=== PATIENT | male | born 1990 | race Caucasian/White ===

== ENCOUNTER 2023-01-03 05:34 | Emergency (ER) | payer MEDICAID, SELFPAY ==
[2023-01-03 05:37] VITALS: BP 146/100; PULSE 99; RESP 18; TEMP 37.4; O2SAT 95; BMI 51.1
[2023-01-03 05:46] LABS: Glucometer 134 mg/dL (74-106)
--- NOTE | 2023-01-03 05:51 | XR_ITS ---
The [address] [address] Patient Name: JACQUELINE GUY MRN: [id number] date: 1990 Sex: M Assigned Patient Location: ER Current Patient Location: ER Accession/Order Number: [id number] Exam Date: 01/03/2023 06:00 Report Date: 01/03/2023 07:01 At the request of: CYNTHIA PINEDA Procedure: XR ankle RT min 3V PROCEDURE: XR foot RT min 3V, XR ankle RT min 3V HISTORY: pain ; right foot and ankle pain; no known injury COMPARISON: None. FINDINGS: BONES:Erosive degenerative changes involving the articular surface and margins of the head of the first metatarsal, and complete loss of the joint space. Mild joint space narrowing throughout the ankle and foot. No fracture or dislocation. SOFT TISSUES:No visible soft tissue swelling. EFFUSION:None visible. OTHER: Negative. XR/XR ankle RT min 3V IMPRESSION: 1. 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 2. Mild degenerative joint disease throughout the foot and ankle; advanced for patient's age. Electronically authenticated by: MARTHA SMITH Date: 01/03/2023 07:01
--- NOTE | 2023-01-03 05:51 | XR_ITS ---
The [address] [address] Patient Name: JACQUELINE GUY MRN: [id number] date: 1990 Sex: M Assigned Patient Location: ER Current Patient Location: ED.MAIN Accession/Order Number: [id number] Exam Date: 01/03/2023 06:00 Report Date: 01/03/2023 06:48 At the request of: CYNTHIA PINEDA Procedure: XR wrist RT min 3V PROCEDURE: XR wrist RT min 3V HISTORY: pain ; right hand weakness for one week COMPARISON: None. FINDINGS: BONES:No fracture, acute abnormality, or significant arthropathy. SOFT TISSUES:No visible soft tissue swelling. Small corticated ossification posterior medial to distal ulna favoring heterotopic bone formation from remote injury. EFFUSION:None visible. OTHER: Negative. XR/XR wrist RT min 3V IMPRESSION: 1. No acute bone abnormality or significant degenerative joint disease. 2. No specific findings to contribute patient's symptoms. Electronically authenticated by: MARTHA SMITH Date: 01/03/2023 06:48
--- NOTE | 2023-01-03 05:51 | XR_ITS ---
The [address] [address] Patient Name: JACQUELINE GUY MRN: [id number] date: 1990 Sex: M Assigned Patient Location: ER Current Patient Location: ER Accession/Order Number: [id number] Exam Date: 01/03/2023 06:00 Report Date: 01/03/2023 07:01 At the request of: CYNTHIA PINEDA Procedure: XR foot RT min 3V PROCEDURE: XR foot RT min 3V, XR ankle RT min 3V HISTORY: pain ; right foot and ankle pain; no known injury COMPARISON: None. FINDINGS: BONES:Erosive degenerative changes involving the articular surface and margins of the head of the first metatarsal, and complete loss of the joint space. Mild joint space narrowing throughout the ankle and foot. No fracture or dislocation. SOFT TISSUES:No visible soft tissue swelling. EFFUSION:None visible. OTHER: Negative. XR/XR foot RT min 3V IMPRESSION: 1. 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 2. Mild degenerative joint disease throughout the foot and ankle; advanced for patient's age. Electronically authenticated by: MARTHA SMITH Date: 01/03/2023 07:01
--- NOTE | 2023-01-03 05:57 | ED_ITS ---
HPI - Weakness General Chief complaint: Weakness Stated complaint: WEAKNESS Time Seen by Provider: 01/03/23 05:51 Source: patient Mode of arrival: Wheelchair Limitations: physical limitation History of Present Illness HPI Narrative: The patient is complaining of generalized weakness with right wrist pain and right foot pain that has been going on at least for few weeks he denies any injury and he mentioned that he has been feeling weak and tired and hungry although he did not give any reason why he is hungry and he did request food upon presentation The patient denies any trauma nausea vomiting or any chest pain He did had a injection in his right wrist before for pain and he presented to another facility for back pain before and he was given Toradol for that Related Data Allergies Allergy/AdvReac Type Severity Reaction Status Date / Time No Known Drug Allergies Allergy Verified 01/03/23 05:43 Review of Systems ROS Status of ROS 10 or more systems reviewed and unremarkable except as noted in history and below PFSH PFS Social History Smoking status: Never smoker Exam Narrative Exam Narrative: Nurses notes and vital signs reviewed and patient is not hypoxic. General: Well-appearing and in no apparent distress. Skin: Warm, dry, no pallor noted. No rash. Head: Normocephalic, atraumatic. Neck: Supple, non-tender. Eye: Pupils are equal, round and EOMI. No scleral icterus. Ears, Nose, Mouth, and Throat: TM are clear, no nasal mucosal hypertrophy. Oral mucosa is moist, no posterior oropharynx erythema, uvula is mid-line Cardiovascular: Regular Rate and Rhythm without murmur, gallop or rub. Respiratory: No accessory muscle use or respiratory distress. Lungs are clear to auscultation, no wheezing, rales or rhonchi Chest Wall: no tenderness Back: No midline thoracic or lumbar vertebral tenderness. No CVA tenderness Musculoskeletal: The patient have tenderness upon palpation of the lateral malleolus on the right ankle he did had some bad hygiene and there is tenderness just at the big toe metatarsophalangeal joint of the right foot, there is tenderness upon palpation of the right wrist and there is limitation of movement of extension and flexion due to swelling and pain, no vascular injury detected GI: Abdomen is soft, non-distended. Normal bowel sounds. No masses appreciated. No tenderness to palpation. No rebound, guarding, or rigidity noted. Neurological: A&O x4. No cranial nerve dysfunction observed. No truncal ataxia. Moves all extremities. Sensation intact. Psychiatric: Cooperative and interactive. Normal mood and affect. Constitutional Vital Signs, click to edit/add: Last Vital Signs Temp 99.3 F 01/03/23 05:37 Pulse 99 H 01/03/23 05:37 Resp 18 01/03/23 05:37 BP 146/100 H 01/03/23 05:37 Pulse Ox 95 01/03/23 05:37 O2 Del Method Room Air 01/03/23 05:37 Course Vital Signs Vital signs: Vital Signs Temperature 99.3 F 01/03/23 05:37 Pulse Rate 99 H 01/03/23 05:37 Respiratory Rate 18 01/03/23 05:37 Blood Pressure 146/100 H 01/03/23 05:37 Pulse Oximetry 95 01/03/23 05:37 Oxygen Delivery Method Room Air 01/03/23 05:37 Temperature 99.3 F 01/03/23 05:37 Pulse Rate 99 H 01/03/23 05:37 Respiratory Rate 18 01/03/23 05:37 Blood Pressure 146/100 H 01/03/23 05:37 Pulse Oximetry 95 01/03/23 05:37 Oxygen Delivery Method Room Air 01/03/23 05:37 MDM - Weakness MDM Narrative Medical decision making narrative: The patient presented with chronic issues of few weeks of right breast and right foot pain that has been going on with no trauma he also mentioned that he had injection in his wrist before for similar pain It was noted that the patient presented to us complain generalized weakness and being hungry and requested food upon presentation The patient blood work-up showed no acute significant pathology his x-ray of the right wrist and foot are pending and his care will be transferred to Dr. Hendrix awaiting those results Lab Data Labs: Lab Results 01/03/23 01/03/23 Range/Units 05:41 06:00 WBC 11.4 H (4.0-11.0) 10^3/uL RBC 4.75 (4.70-6.10) 10^6/uL Hgb 13.4 L (14.0-18.0) g/dL Hct 40.9 L (42.0-54.0) % MCV 86.1 (80.0-94.0) fL MCH 28.2 (25.9-34.0) pg MCHC 32.8 (29.9-35.2) g/dL RDW 12.5 (11.0-15.0) % Plt Count 356 (150-450) 10^3/uL MPV 10.2 (9.5-13.5) fL Neut % (Auto) 67.2 (43.0-75.0) % Lymph % (Auto) 20.7 (20.5-60.0) % [place] % (Auto) 9.9 (1.7-12.0) % Eos % (Auto) 0.8 L (0.9-7.0) % Baso % (Auto) 0.5 (0.2-2.0) % Neut # (Auto) 7.7 H (1.4-6.5) 10^3/uL Lymph # (Auto) 2.4 (1.2-3.8) 10^3/uL [place] # (Auto) 1.1 H (0.3-0.8) 10^3/uL Eos # (Auto) 0.1 (0.0-0.7) 10^3/uL Baso # (Auto) 0.1 (0.0-0.1) 10^3/uL Abs Immat Gran (auto) 0.10 H (0.00-0.03) 10^3/uL Imm/Tot Granulo (auto) 0.9 H (0.0-0.5) % Sodium 132 L (136-145) mmol/L Potassium 3.6 (3.5-5.1) mmol/L Chloride 97 L (98-107) mmol/L Carbon Dioxide 24.6 (21.0-32.0) mmol/L Anion Gap 14.0 BUN 10.0 (7.0-18.0) mg/dL Creatinine 1.03 (0.70-1.30) mg/dL Est GFR ( Amer) >60 (>=60) Est GFR (Non-Af Amer) >60 (>=60) BUN/Creatinine Ratio 9.7 Glucose 146 H (74-106) mg/dL Calcium 8.8 (8.5-10.1) mg/dL Total Bilirubin 0.9 (0.2-1.0) mg/dL AST 15 (15-37) U/L ALT 26 (16-63) U/L Alkaline Phosphatase 67 (46-116) U/L Total Protein 8.1 (6.4-8.2) g/dL Albumin 3.4 (3.4-5.0) g/dL Globulin 4.7 g/dL Albumin/Globulin Ratio 0.7 POC Glucose 134 H (74-106) mg/dL Discharge Plan Discharge Patient Disposition: Still a Patient
[2023-01-03 06:21] LABS: Basophils Absolute Auto 0.1 10^3/uL (0.0-0.1); Basophils Percent Auto 0.5 % (0.2-2.0); Eosinophils Absolute Auto 0.1 10^3/uL (0.0-0.7); Eosinophils Percent Auto 0.8 % (0.9-7.0); Hematocrit 40.9 % (42.0-54.0); Hemoglobin 13.4 g/dL (14.0-18.0); Immature Granulocytes Pct Auto 0.9 % (0.0-0.5); Lymphocytes Absolute Auto 2.4 10^3/uL (1.2-3.8); Lymphocytes Percent Auto 20.7 % (20.5-60.0); Mean Corpuscular HGB Conc 32.8 g/dL (29.9-35.2); Mean Corpuscular Hemoglobin 28.2 pg (25.9-34.0); Mean Corpuscular Volume 86.1 fL (80.0-94.0); Mean Platelet Volume 10.2 fL (9.5-13.5); Monocytes Absolute Auto 1.1 10^3/uL (0.3-0.8); Monocytes Percent Auto 9.9 % (1.7-12.0); Neutrophils Absolute Auto 7.7 10^3/uL (1.4-6.5); Neutrophils Percent Auto 67.2 % (43.0-75.0); Platelet Count 356 10^3/uL (150-450); Red Blood Count 4.75 10^6/uL (4.70-6.10); Red Cell Distribution Width 12.5 % (11.0-15.0); White Blood Count 11.4 10^3/uL (4.0-11.0)
[2023-01-03] MEDS: KETOROLAC TROMETHAMINE 60 MG/2 ML VIAL IM (06:26)
[2023-01-03 06:44] LABS: Alanine Aminotransferase 26 U/L (16-63); Albumin Globulin Ratio 0.7; Albumin Level 3.4 g/dL (3.4-5.0); Alkaline Phosphatase 67 U/L (46-116); Aspartate Amino Transferase 15 U/L (15-37); BUN Creatinine Ratio 9.7; Bilirubin Total 0.9 mg/dL (0.2-1.0); Calcium 8.8 mg/dL (8.5-10.1); Carbon Dioxide 24.6 mmol/L (21.0-32.0); Chloride 97 mmol/L (98-107); Estimated GFR (African America >60 (>=60); Estimated GFR (Non-African Ame >60 (>=60); Globulin 4.7 g/dL; Glucose 146 mg/dL (74-106); Potassium 3.6 mmol/L (3.5-5.1); Sodium 132 mmol/L (136-145); Total Protein 8.1 g/dL (6.4-8.2)
[2023-01-03 07:41] VITALS: BP 142/90
[2023-01-03 07:55] LABS: Uric Acid 11.4 mg/dL (3.5-7.2)
== END 2023-01-03 07:53 | disposition home or self-care (01) ==
PROVIDERS: Emergency Medicine; Emergency Provider Emergency Medicine
DX: L03.115 Cellulitis of right lower limb (principal); M19.90 Unspecified osteoarthritis, unspecified site; I10 Essential (primary) hypertension; M25.571 Pain in right ankle and joints of right foot
CPT/HCPCS: 36415; 73110; 73610; 73630; 80053; 84550; 85025; 85610; 96372; 99284

== ENCOUNTER 2023-01-26 14:48 | Emergency (ER) | payer MEDICAID, SELFPAY ==
[2023-01-26 14:55] VITALS: BP 182/100; PULSE 99; RESP 17; TEMP 36.9; O2SAT 97
--- NOTE | 2023-01-26 15:24 | ED.EXTPRO1 ---
Documented by User: ANA PAULA Rojo 01/26/23 15:27 HPI - Extremity Problem General Chief complaint: Extremity Problem, Nontraumatic Stated complaint: RT WRIST PAIN Time Seen by Provider: 01/26/23 15:01 Source: patient Mode of arrival: walk-in Limitations: no limitations History of Present Illness HPI Narrative: patient is a 33-year-old male who presents to the emergency Department for pain in the right wrist. Patient was seen in this emergency department on 01/03/23 for the same. He has been having atraumatic right wrist pain for several months and recently moved from [place]. He had blood work, x-rays and was treated for gouty arthritis and possible cellulitis with prednisone and Keflex. He states that his right wrist pain improved but has gotten worse in the last several days. He denies any new injuries or traumas. He reports pain diffusely over the dorsum of the right wrist. He continues to have elevated blood pressure reading in this emergency department today, he was instructed on his last visit that his blood pressure was elevated and he should establish with a local primary care provider. He states that he has not gotten around to it . Related Data Previous Rx's Medication Instructions Recorded cephalexin 500 mg capsule 500 mg PO Q8H 7 days #21 caps 01/03/23 prednisone 50 mg tablet 50 mg PO DAILY 5 days #5 tabs 01/03/23 ketorolac 10 mg tablet 10 mg PO TID PRN pain #10 tabs 01/26/23 methylprednisolone 4 mg tablets in See Rx Instructions .Route 01/26/23 a dose pack (Medrol (Wero)) .COMPLEX #21 ea Allergies Allergy/AdvReac Type Severity Reaction Status Date / Time No Known Drug Allergies Allergy Verified 01/03/23 05:43 Review of Systems ROS Constitutional Denies: fever or chills Respiratory Denies: shortness of breath or cough Gastrointestinal Denies: nausea or vomiting Musculoskeletal Reports: extremity pain; Denies: back pain or neck pain Integumentary/Breast Denies: rash Endocrine Denies: excessive urination Hematologic/Lymphatic Denies: easy bruising PFSH PFSH Social History Smoking status: Never smoker Exam Narrative Exam Narrative: Gen.: Awake, alert, in no distress Head: Normocephalic, atraumatic ENT: Moist mucous membranes Respiratory: No respiratory distress Extremities: limited flexion and extension at the right wrist with diffuse minimal edema, 2+ right radial pulse. Normal movement of the fingers of the right hand. Diffusely tender to palpation of the right wrist, no erythema or open wounds noted. No tenderness of the proximal forearm or elbow the right upper extremity Psych: Normal mood and affect Neuro: No focal neuro deficit Skin: Warm, dry, intact Constitutional Vital Signs, click to edit/add: Last Vital Signs Temp 98.4 F 01/26/23 14:55 Pulse 97 H 01/26/23 15:42 Resp 18 01/26/23 15:42 BP 140/90 01/26/23 15:42 Pulse Ox 99 01/26/23 15:42 O2 Del Method Room Air 01/26/23 14:55 Course Vital Signs Vital signs: Vital Signs Temperature 98.4 F 01/26/23 14:55 Pulse Rate 99 H 01/26/23 14:55 Respiratory Rate 17 01/26/23 14:55 Blood Pressure 182/100 H 01/26/23 14:55 Pulse Oximetry 97 01/26/23 14:55 Oxygen Delivery Method Room Air 01/26/23 14:55 Temperature 98.4 F 01/26/23 14:55 Pulse Rate 97 H 01/26/23 15:42 Respiratory Rate 18 01/26/23 15:42 Blood Pressure 140/90 01/26/23 15:42 Pulse Oximetry 99 01/26/23 15:42 Oxygen Delivery Method Room Air 01/26/23 14:55 MDM - Extremity (Nontraumatic) MDM Narrative Medical decision making narrative: patient with no injuries, recently treated for suspected inflammation in the right wrist. He was made aware of the limitations of emergency room evaluation as he has already had labs and x-rays. He will be placed on a Medrol Dosepak and Toradol for pain. He is referred to local primary care, he was made aware that he needs to establish with a primary care provider for further evaluation and treatment of his elevated blood pressure readings and chronic right wrist pain. He was instructed that he can go directly to [facility] office across the street and ask for help with establishing care as a new patient so that he can be scheduled. return to the Emergency Room if symptoms change or worsen Discharge Plan Discharge Chief Complaint: Extremity Problem, Nontraumatic Clinical Impression: Acute pain of right wrist, High blood pressure Patient Disposition: Home, Self-Care Time of Disposition Decision: 15:18 Condition: Good Mode of Transportation: Private Vehicle Prescriptions / Home Meds: New ketorolac 10 mg tablet 10 mg PO TID PRN (Reason: pain) Qty: 10 0RF methylprednisolone [Medrol (Wero)] 4 mg tablets,dose pack See Rx Instructions .ROUTE .COMPLEX Qty: 21 0RF Rx Instructions: Taper as directed No Action prednisone 50 mg tablet 50 mg PO DAILY 5 Days Qty: 5 0RF cephalexin 500 mg capsule 500 mg PO Q8H 7 Days Qty: 21 0RF Instructions: Arthralgia (ED) Stand Alone Forms: Portal Instructions Referrals: Physician,Non-Staff, MD [Primary Care Provider] - 1 week Discharge Date/Time: 01/26/23 15:43 Documented by User: Leigh Hendrix MD 01/27/23 07:58 HPI - Extremity Problem General Chief complaint: Extremity Problem, Nontraumatic Stated complaint: RT WRIST PAIN Time Seen by Provider: 01/26/23 15:01 Related Data Previous Rx's Medication Instructions Recorded cephalexin 500 mg capsule 500 mg PO Q8H 7 days #21 caps 01/03/23 prednisone 50 mg tablet 50 mg PO DAILY 5 days #5 tabs 01/03/23 ketorolac 10 mg tablet 10 mg PO TID PRN pain #10 tabs 01/26/23 methylprednisolone 4 mg tablets in See Rx Instructions .Route 01/26/23 a dose pack (Medrol (Wero)) .COMPLEX #21 ea Allergies Allergy/AdvReac Type Severity Reaction Status Date / Time No Known Drug Allergies Allergy Verified 01/03/23 05:43 PFSH PFSH Social History Smoking status: Never smoker Exam Constitutional Vital Signs, click to edit/add: Last Vital Signs Temp 98.4 F 01/26/23 14:55 Pulse 97 H 01/26/23 15:42 Resp 18 01/26/23 15:42 BP 140/90 01/26/23 15:42 Pulse Ox 99 01/26/23 15:42 O2 Del Method Room Air 01/26/23 14:55 Course Vital Signs Vital signs: Vital Signs Temperature 98.4 F 01/26/23 14:55 Pulse Rate 99 H 01/26/23 14:55 Respiratory Rate 17 01/26/23 14:55 Blood Pressure 182/100 H 01/26/23 14:55 Pulse Oximetry 97 01/26/23 14:55 Oxygen Delivery Method Room Air 01/26/23 14:55 Temperature 98.4 F 01/26/23 14:55 Pulse Rate 97 H 01/26/23 15:42 Respiratory Rate 18 01/26/23 15:42 Blood Pressure 140/90 01/26/23 15:42 Pulse Oximetry 99 01/26/23 15:42 Oxygen Delivery Method Room Air 01/26/23 14:55 MDM - Extremity (Nontraumatic) MDM Narrative Medical decision making narrative: patient with no injuries, recently treated for suspected inflammation in the right wrist. He was made aware of the limitations of emergency room evaluation as he has already had labs and x-rays. He will be placed on a Medrol Dosepak and Toradol for pain. He is referred to local primary care, he was made aware that he needs to establish with a primary care provider for further evaluation and treatment of his elevated blood pressure readings and chronic right wrist pain. He was instructed that he can go directly to [facility] office across the street and ask for help with establishing care as a new patient so that he can be scheduled. return to the Emergency Room if symptoms change or worsen Attending physician attestation I have seen and evaluated this patient. I have reviewed the mid-level provider?s documentation medical decision making and treatment plan. I agree with the mid-level provider?s assessment, and plan. Discharge Plan Discharge Chief Complaint: Extremity Problem, Nontraumatic Clinical Impression: Acute pain of right wrist, High blood pressure Patient Disposition: Home, Self-Care Time of Disposition Decision: 15:18 Condition: Good Mode of Transportation: Private Vehicle Prescriptions / Home Meds: New ketorolac 10 mg tablet 10 mg PO TID PRN (Reason: pain) Qty: 10 0RF methylprednisolone [Medrol (Wero)] 4 mg tablets,dose pack See Rx Instructions .ROUTE .COMPLEX Qty: 21 0RF Rx Instructions: Taper as directed No Action prednisone 50 mg tablet 50 mg PO DAILY 5 Days Qty: 5 0RF cephalexin 500 mg capsule 500 mg PO Q8H 7 Days Qty: 21 0RF Instructions: Arthralgia (ED) Stand Alone Forms: Portal Instructions Referrals: Physician,Non-Staff, MD [Primary Care Provider] - 1 week Discharge Date/Time: 01/26/23 15:43
[2023-01-26 15:42] VITALS: BP 140/90; PULSE 97; RESP 18; O2SAT 99
== END 2023-01-26 15:43 | disposition home or self-care (01) ==
PROVIDERS: Emergency Provider Emergency Medicine
DX: M25.531 Pain in right wrist (principal); I10 Essential (primary) hypertension
CPT/HCPCS: 99283

== ENCOUNTER 2023-02-01 14:06 | Outpatient (OUT) | payer MEDICAID, SELFPAY ==
[2023-02-02 05:07] LABS: HCV Ab Non Reactive (Non Reactive)
== END 2023-02-01 14:07 | disposition home or self-care (01) ==
LOC: LAB 14:06
PROVIDERS: PCP Nurse Practitioner Primary Care; Visit Provider Nurse Practitioner Primary Care
DX: E11.59 Type 2 diabetes mellitus with other circulatory complications (principal)
CPT/HCPCS: 36415; 86803

== ENCOUNTER 2023-02-13 17:30 | Observation (INO) | payer MEDICAID, SELFPAY ==
[2023-02-13 17:38] VITALS: BP 158/102; PULSE 72; RESP 22; TEMP 36.5; O2SAT 99; BMI 50.3
--- NOTE | 2023-02-13 17:48 | ED_ITS ---
HPI - Abdominal Pain General Chief Complaint: Abdominal Pain Stated Complaint: ABD PAIN Time Seen by Provider: 02/13/23 17:44 Source: patient Mode of arrival: walk-in Limitations: no limitations History of Present Illness HPI narrative: 33-year-old male presents for left lower quadrant abdominal pain. It started about an hour and a half ago. No injury fever or vomiting. No diarrhea or constipation. He points to his left lower quadrant indicate area of pain and he doesn't have pain elsewhere. It is severe and continuous. Related Data Previous Rx's Medication Instructions Recorded cephalexin 500 mg capsule 500 mg PO Q8H 7 days #21 caps 01/03/23 prednisone 50 mg tablet 50 mg PO DAILY 5 days #5 tabs 01/03/23 ketorolac 10 mg tablet 10 mg PO TID PRN pain #10 tabs 01/26/23 methylprednisolone 4 mg tablets in See Rx Instructions .Route 01/26/23 a dose pack (Medrol (Wero)) .COMPLEX #21 ea Allergies Allergy/AdvReac Type Severity Reaction Status Date / Time No Known Drug Allergies Allergy Verified 01/03/23 05:43 Review of Systems ROS Narrative A ten point review of systems is negative except as noted above. PFSH PFSH Social History Smoking status: Never smoker Exam Narrative Exam Narrative: Nurses note and vital signs reviewed and patient is not hypoxic. General: The patient appears uncomfortable Skin: Warm, dry, no pallor noted. There is no rash noted. Head: Normocephalic, atraumatic Eye: Normal conjunctiva, no drainage Ears, Nose, Mouth, and Throat: oral mucosa is moist. Nares patent. Cardiovascular: Regular Rate and Rhythm Respiratory: Patient is in no distress, no accessory muscle use, lungs are clear to auscultation, no wheezing, rales or rhonchi Back: non-tender GI: obese, mild tenderness in the left lower quadrant without distention or mass Musculoskeletal: The patient has no evidence of calf tenderness, no pitting edema, symmetrical pulses noted bilaterally Neurological: A&O, normal speech Psychiatric: Cooperative Constitutional Vital Signs, click to edit/add: Last Vital Signs Temp 97.7 F 02/13/23 17:38 Pulse 72 02/13/23 17:38 Resp 22 02/13/23 17:38 BP 158/102 H 02/13/23 17:38 Pulse Ox 99 02/13/23 17:38 O2 Del Method Room Air 02/13/23 17:38 Course Vital Signs Vital signs: Vital Signs Temperature 97.7 F 02/13/23 17:38 Pulse Rate 72 02/13/23 17:38 Respiratory Rate 22 02/13/23 17:38 Blood Pressure 158/102 H 02/13/23 17:38 Pulse Oximetry 99 02/13/23 17:38 Oxygen Delivery Method Room Air 02/13/23 17:38 Temperature 97.7 F 02/13/23 17:38 Pulse Rate 72 02/13/23 17:38 Respiratory Rate 22 02/13/23 17:38 Blood Pressure 158/102 H 02/13/23 17:38 Pulse Oximetry 99 02/13/23 17:38 Oxygen Delivery Method Room Air 02/13/23 17:38 MDM - Abdominal Pain MDM Narrative Medical decision making narrative: blood work is nonspecific. I'm suspicious of a kidney stone. CAT scan is ordered and the patient is signed out to Dr. Shin. Differential Diagnosis Differential diagnosis: Likely abdominal pain, calculus of kidney and constipation Lab Data Attestation: I reviewed the patient's lab results. Labs: Lab Results 02/13/23 02/13/23 Range/Units 17:50 18:25 WBC 10.5 (4.0-11.0) 10^3/uL RBC 5.16 (4.70-6.10) 10^6/uL Hgb 14.6 (14.0-18.0) g/dL Hct 44.7 (42.0-54.0) % MCV 86.6 (80.0-94.0) fL MCH 28.3 (25.9-34.0) pg MCHC 32.7 (29.9-35.2) g/dL RDW 12.9 (11.0-15.0) % Plt Count 309 (150-450) 10^3/uL MPV 10.3 (9.5-13.5) fL Neut % (Auto) 54.5 (43.0-75.0) % Lymph % (Auto) 32.9 (20.5-60.0) % [place] % (Auto) 10.0 (1.7-12.0) % Eos % (Auto) 1.0 (0.9-7.0) % Baso % (Auto) 0.7 (0.2-2.0) % Neut # (Auto) 5.8 (1.4-6.5) 10^3/uL Lymph # (Auto) 3.5 (1.2-3.8) 10^3/uL [place] # (Auto) 1.1 H (0.3-0.8) 10^3/uL Eos # (Auto) 0.1 (0.0-0.7) 10^3/uL Baso # (Auto) 0.1 (0.0-0.1) 10^3/uL Abs Immat Gran (auto) 0.09 H (0.00-0.03) 10^3/uL Imm/Tot Granulo (auto) 0.9 H (0.0-0.5) % Sodium 134 L (136-145) mmol/L Potassium 4.2 (3.5-5.1) mmol/L Chloride 100 (98-107) mmol/L Carbon Dioxide 22.6 (21.0-32.0) mmol/L Anion Gap 15.6 BUN 12.0 (7.0-18.0) mg/dL Creatinine 1.03 (0.70-1.30) mg/dL Est GFR ( Amer) >60 (>=60) Est GFR (Non-Af Amer) >60 (>=60) BUN/Creatinine Ratio 11.7 Glucose 140 H (74-106) mg/dL Calcium 9.5 (8.5-10.1) mg/dL Urine Color Lt. yellow (YELLOW) Urine Clarity Slightly cloudy A (CLEAR) Urine pH 6.0 (5.0-9.0) Ur Specific [place] 1.015 (1.005-1.025) Urine Protein Negative (NEG/TRACE) mg/dL Urine Glucose (UA) Negative (NEGATIVE) mg/dL Urine Ketones Negative (NEGATIVE) mg/dL Urine Occult Blood Small A (NEGATIVE) Urine Nitrite Negative (NEGATIVE) Urine Bilirubin Negative (NEGATIVE) Urine Urobilinogen 1.0 (0.2-1.0) EU/dL Ur Leukocyte Esterase Moderate A (NEGATIVE) Discharge Plan Discharge Chief Complaint: Abdominal Pain Clinical Impression: Abdominal pain Patient Disposition: Still a Patient Prescriptions / Home Meds: No Action prednisone 50 mg tablet 50 mg PO DAILY 5 Days Qty: 5 0RF cephalexin 500 mg capsule 500 mg PO Q8H 7 Days Qty: 21 0RF ketorolac 10 mg tablet 10 mg PO TID PRN (Reason: pain) Qty: 10 0RF methylprednisolone [Medrol (Wero)] 4 mg tablets,dose pack See Rx Instructions .ROUTE .COMPLEX Qty: 21 0RF Rx Instructions: Taper as directed Referrals: CHELSEY PLATT APRN [Primary Care Provider] - 1 week
[2023-02-13 17:56] LABS: Basophils Absolute Auto 0.1 10^3/uL (0.0-0.1); Basophils Percent Auto 0.7 % (0.2-2.0); Eosinophils Absolute Auto 0.1 10^3/uL (0.0-0.7); Hematocrit 44.7 % (42.0-54.0); Hemoglobin 14.6 g/dL (14.0-18.0); Immature Granulocytes Abs Auto 0.09 10^3/uL (0.00-0.03); Immature Granulocytes Pct Auto 0.9 % (0.0-0.5); Lymphocytes Absolute Auto 3.5 10^3/uL (1.2-3.8); Lymphocytes Percent Auto 32.9 % (20.5-60.0); Mean Corpuscular HGB Conc 32.7 g/dL (29.9-35.2); Mean Corpuscular Hemoglobin 28.3 pg (25.9-34.0); Mean Corpuscular Volume 86.6 fL (80.0-94.0); Mean Platelet Volume 10.3 fL (9.5-13.5); Monocytes Absolute Auto 1.1 10^3/uL (0.3-0.8); Neutrophils Absolute Auto 5.8 10^3/uL (1.4-6.5); Neutrophils Percent Auto 54.5 % (43.0-75.0); Platelet Count 309 10^3/uL (150-450); Red Blood Count 5.16 10^6/uL (4.70-6.10); Red Cell Distribution Width 12.9 % (11.0-15.0); White Blood Count 10.5 10^3/uL (4.0-11.0)
[2023-02-13 18:04] LABS: Anion Gap 15.6; BUN Creatinine Ratio 11.7; Calcium 9.5 mg/dL (8.5-10.1); Carbon Dioxide 22.6 mmol/L (21.0-32.0); Chloride 100 mmol/L (98-107); Estimated GFR (African America >60 (>=60); Estimated GFR (Non-African Ame >60 (>=60); Glucose 140 mg/dL (74-106); Potassium 4.2 mmol/L (3.5-5.1); Sodium 134 mmol/L (136-145)
[2023-02-13 18:36] LABS: Bilirubin Urine NEGATIVE (NEGATIVE); Blood Urine SMALL (NEGATIVE); Color Urine LT. YELLOW (YELLOW); Glucose Urine UA NEGATIVE (NEGATIVE); Ketones Urine NEGATIVE (NEGATIVE); Leukocyte Esterase Urine MODERATE (NEGATIVE); Nitrite Urine NEGATIVE (NEGATIVE); Protein Urine NEGATIVE (NEG/TRACE); Specific Gravity Urine 1.015 (1.005-1.025)
[2023-02-13 18:38] LABS: Clarity Urine SLIGHTLY CLOUDY (CLEAR)
[2023-02-13 18:41] LABS: RBC Urine 0-2 #/HPF (0-2); WBC Urine 75-100 #/HPF (NONE SEEN)
[2023-02-13 18:42] LABS: Bacteria Urine TRACE #/HPF (NONE SEEN); Mucus Urine NONE SEEN (NONE SEEN)
--- NOTE | 2023-02-13 18:42 | CT_ITS ---
The [address] [address] Patient Name: JACQUELINE GUY MRN: [id number] date: 1990 Sex: M Assigned Patient Location: ER Current Patient Location: ER Accession/Order Number: [id number] Exam Date: 02/13/2023 18:49 Report Date: 02/13/2023 20:04 At the request of: NAHID LIM Procedure: CT abdomen pelvis wo con EXAMINATION: CT abdomen pelvis wo con REASON FOR EXAM: Pain, rule out kidney stone. Left flank pain. TECHNIQUE: Dose reduction techniques were achieved by using automated exposure control and/or adjustment of mA and/or kV according to patient size and/or use of iterative reconstruction technique. Lung bases: Minor atelectasis right lung base. No pleural effusion. Abdominal findings: There is mild to moderate left-sided hydronephrosis and hydroureter which is secondary to a stone in the pelvic segment of the left ureter. This stone measures 1.1 x 0.6 cm and resides at a location 2.6 cm above the left UVJ. No other nephrolithiasis. There is fatty infiltration of the liver and multiple cholesterol gallstones. No cholecystitis. No biliary dilatation. No pancreatitis or pancreatic ductal dilatation. Adrenal glands are normal. No dilatation of the stomach, duodenum, small bowel, or colon. The appendix is normal. No abnormally dilated small or large bowel. No free air. No ascites. Normal caliber abdominal aorta. Pelvic findings: No pelvic free fluid or abscess. No distention of the urinary bladder. No bladder calculus. CT/CT abdomen pelvis wo con IMPRESSION: 1. Obstructing stone in the pelvic segment of the left ureter. This stone measures up to 1.1 cm in maximal diameter. Mild to moderate left-sided hydronephrosis. 2. Incidental findings include fatty infiltration of the liver and cholelithiasis. Electronically authenticated by: LARISA PARIKH Date: 02/13/2023 20:04
[2023-02-13 18:43] LABS: Cast Seen? NONE SEEN #/LPF (NONE SEEN); Crystals Seen? None Seen #/HPF (None Seen); Squamous Epithelial Cell Urine NONE SEEN #/LPF (NONE/RARE); Urine Culture Indicated YES
[2023-02-13] MEDS: ONDANSETRON PF 4 MG/2 ML VIAL IV (18:49)
[2023-02-13] MEDS: CIPROFLOXACIN IN 5 % DEXTROSE 400 MG/200 ML PIGGYBACK 200 MG IV (19:14)
[2023-02-13] MEDS: KETOROLAC TROMETHAMINE 30 MG/ML VIAL IVP (19:30)
[2023-02-13] MEDS: TAMSULOSIN HCL 0.4 MG CAPSULE PO (20:45)
[2023-02-13 20:47] VITALS: BP 177/103; PULSE 71; RESP 16; O2SAT 100
[2023-02-13 23:09] VITALS: BP 180/102; PULSE 107; RESP 22; TEMP 37.7; O2SAT 98; BMI 49.3
[2023-02-13] MEDS: DEXTROSE 5%-0.9% NACL 1,000 ML 1,000 ML 125 ML IV (23:57)
[2023-02-14] VITALS (18 sets, daily range): BP systolic 108–180; BP diastolic 71–102; PULSE 70–89; RESP 8–89; TEMP 36.2–37.7; O2SAT 95–100
[2023-02-14 00:05] LABS: Glucometer 163 mg/dL (74-106)
[2023-02-14] MEDS: ACETAMINOPHEN 325 MG TABLET 650 MG PO (00:07)
[2023-02-14] MEDS: HYDRALAZINE HCL 20 MG/ML VIAL 10 MG IVP (00:08)
--- NOTE | 2023-02-14 02:18 | P.PN_ITS ---
Progress Note: Subjective Subjective Interval history: Patient is a 33-year-old male with history of hypertension and morbid obesity presenting with with complaint of left lower quadrant abdominal pain of sudden onset around 4 PM yesterday afternoon after he had gotten into his car to head to work. Patient states that while he was at work, the LLQ pain became more severe in intensity therefore he called his boss and proceeded to drive to the hospital, approximately 4 miles away from his job. He denies any fevers at home, denies any nausea or vomiting and denies any dysuria, hematuria, no urinary frequency. Patient does note that he vomited approximately 3 times in the ED which did resolve after receiving Zofran. Patient does report that he had a history of kidney stones in the past for which he was hospitalized for when he lived in [place] and subsequently followed up with urologist in the office but according to patient, he could not afford the financial cost to proceed with stone removal at that time.. He reports that his pain had improved at that time and he had not had any recurrent issues up until yesterday. Upon arrival to the ED, vital signs noted for BP 158/102 and SBP has been as high as 180s since arrival to the floor, pulse 72, RR 22, afebrile with normal O2 sat RA. Labs significant for sodium 134, glucose 140 otherwise rest of labs within normal limits including normal renal function with creatinine of 1.03 and normal LFTs as well is normal WBC. UA was positive with moderate leuk esterase, small occult blood with WBC count of 75-[address] abdomen and pelvis noted for obstructive left ureteral stone at 1.1 cm with associated mild to moderate left hydronephrosis. Also incidental finding for fatty liver and cholelithiasis. Patient was treated in the ED with Toradol, Flomax, Zofran, and a dose of Cipro 400 mg. He is being admitted to the hospitalist service for further management. Exam Constitutional Vital Signs, click to edit/add: Last Vital Signs Temp 98.3 F 02/14/23 01:09 Pulse 107 H 02/13/23 23:09 Resp 22 02/13/23 23:09 BP 180/102 H 02/14/23 00:08 Pulse Ox 98 02/13/23 23:09 O2 Del Method Room Air 02/13/23 23:09 Common normals: no apparent distress and alert General appearance: cooperative and comfortable Orientation/consciousness: Yes awake, Yes oriented to person, Yes oriented to place and Yes oriented to time HENMT Common normals: normocephalic and head/scalp atraumatic Head and scalp: normal to inspection Face and sinus: normal facial exam Eye Common normals: PERRL and EOMs intact bilaterally Respiratory Common normals: normal respiratory effort and no use of accessory muscles Effort & inspection: able to speak in complete sentences Auscultation: clear to auscultation bilaterally and diminished lung sounds Cardio Common normals: regular rate, regular rhythm, S1 normal heart sound and S2 normal heart sound GI Inspection: other (morbidly obese abd) Auscultation: hypoactive bowel sounds Palpation: soft and other (TTP LLQ) Common normals: no CVA tenderness Extremity Common normals: normal to inspection and full ROM General: normal exam except as noted Neuro Common normals: oriented x3, CN's II-XII intact bilaterally and moves all extremities Psych Common normals: mental status grossly normal and thought process normal Speech: normal speech Attention/concentration: attention grossly intact Memory/cognition: memory grossly intact Insight: insight good Judgement: judgment good Progress Note: Objective Labs Labs: Short CBC 02/13/23 Range/Units 17:50 WBC 10.5 (4.0-11.0) 10^3/uL Hgb 14.6 (14.0-18.0) g/dL Hct 44.7 (42.0-54.0) % Plt Count 309 (150-450) 10^3/uL BMP 02/13/23 17:50 Sodium 134 L Potassium 4.2 Chloride 100 Carbon Dioxide 22.6 BUN 12.0 Creatinine 1.03 Glucose 140 H Calcium 9.5 Urine 02/13/23 Range/Units 18:25 Urine Color Lt. yellow (YELLOW) Urine Clarity Slightly cloudy A (CLEAR) Urine pH 6.0 (5.0-9.0) Ur Specific [place] 1.015 (1.005-1.025) Urine Protein Negative (NEG/TRACE) mg/dL Urine Glucose (UA) Negative (NEGATIVE) mg/dL Imaging CT scan - abdomen: Radiologist's impression: CT abdomen and pelvis with obstructive left ureteral stone 1.1 cm and mild to moderate left hydronephrosis, fatty liver with cholelithiasis Progress Note: A&P Assessment and Plan (1) Hydronephrosis with obstructing calculus: Assessment and Plan: N.p.o., IV fluids. Urology consulted with plans to go to the OR this morning. As needed Toradol, Zofran for pain. Continue Flomax. Empiric Rocephin ordered (2) UTI (urinary tract infection): Assessment and Plan: Follow-up urine culture. Empiric Rocephin ordered. IV fluids (3) Hypertension: Assessment and Plan: Uncontrolled. Takes losartan at home. IV hydralazine ordered as needed well n.p.o. Closely monitor with IV fluids (4) Hyperglycemia: Assessment and Plan: Patient denies history of diabetes. For now we will monitor with repeat labs (5) Hyponatremia: Assessment and Plan: Mild. IV fluids ordered, repeat labs in a.m. (6) Fatty liver: Assessment and Plan: Noted in the setting of history of morbid obesity. LFTs currently normal. Outpatient surveillance with PCP (7) Morbid obesity due to excess calories: Assessment and Plan: Diet and lifestyle modification. Follow-up with PCP for long-term management Telemedicine Attestation Telemedicine Attestation I conducted this encounter from [MD] via secure live, [id number] video conference with the patient, located at [facility] with [ANDREI Aguilar]. Prior to the interview, the risks and benefits of telemedicine were discussed with the patient and verbal consent was obtained.
[2023-02-14 04:55] LABS: Basophils Absolute Auto 0.1 10^3/uL (0.0-0.1); Basophils Percent Auto 0.2 % (0.2-2.0); Hematocrit 41.4 % (42.0-54.0); Hemoglobin 13.6 g/dL (14.0-18.0); Immature Granulocytes Abs Auto 0.16 10^3/uL (0.00-0.03); Immature Granulocytes Pct Auto 0.7 % (0.0-0.5); Lymphocytes Absolute Auto 1.2 10^3/uL (1.2-3.8); Lymphocytes Percent Auto 5.3 % (20.5-60.0); Mean Corpuscular HGB Conc 32.9 g/dL (29.9-35.2); Mean Corpuscular Hemoglobin 28.6 pg (25.9-34.0); Mean Corpuscular Volume 87.2 fL (80.0-94.0); Mean Platelet Volume 10.4 fL (9.5-13.5); Monocytes Absolute Auto 1.7 10^3/uL (0.3-0.8); Monocytes Percent Auto 7.4 % (1.7-12.0); Neutrophils Absolute Auto 19.2 10^3/uL (1.4-6.5); Neutrophils Percent Auto 86.4 % (43.0-75.0); Platelet Count 284 10^3/uL (150-450); Red Blood Count 4.75 10^6/uL (4.70-6.10); White Blood Count 22.2 10^3/uL (4.0-11.0)
[2023-02-14 05:15] LABS: Alanine Aminotransferase 24 U/L (16-63); Albumin Globulin Ratio 0.8; Albumin Level 3.2 g/dL (3.4-5.0); Alkaline Phosphatase 73 U/L (46-116); Anion Gap 12.8; Aspartate Amino Transferase 7 U/L (15-37); Bilirubin Total 0.6 mg/dL (0.2-1.0); Calcium 9.1 mg/dL (8.5-10.1); Carbon Dioxide 25.1 mmol/L (21.0-32.0); Chloride 102 mmol/L (98-107); Estimated GFR (African America 56 (>=60); Estimated GFR (Non-African Ame 46 (>=60); Globulin 3.9 g/dL; Glucose 219 mg/dL (74-106); Potassium 3.9 mmol/L (3.5-5.1); Sodium 136 mmol/L (136-145); Total Protein 7.1 g/dL (6.4-8.2)
[2023-02-14] MEDS: CIPROFLOXACIN IN 5 % DEXTROSE 400 MG/200 ML PIGGYBACK 125 MG IV (06:37)
--- NOTE | 2023-02-14 07:54 | PC.NURSE ---
Right hand has some weakness and the flexion and extension is limited
[2023-02-14] MEDS: KETOROLAC TROMETHAMINE 30 MG/ML VIAL IVP ×3 (08:16→19:12)
[2023-02-14] MEDS: TAMSULOSIN HCL 0.4 MG CAPSULE PO (08:17)
--- NOTE | 2023-02-14 08:20 | P.HP_ITS ---
H&P: HPI History of Present Illness Chief complaint: ABD PAIN Narrative: patient is a 33-year-old male with past medical history of hypertension, [id number] type 2 diabetes, and kidney stones. He presented to the Emergency Room with a sudden onset of left lower quadrant abdominal pain. He also had a few episodes of vomiting. He notes history of left stone in his ureter which she was hospitalized in [place] but could not afford outpatient follow-up and stone removal. Upon arrival to the emergency department he denied any fevers chills. Patient was found to have an elevated white blood cell count and a slightly elevated creatinine of 1.7. CT of abdomen and pelvis was positive for an obstructive left ureteral stone 1.1 cm with mild to moderate left hydronephrosis. Urology was counseled and plans for surgical intervention this evening. Also on CT scan was incidental finding of the of fatty liver and cholelithiasis. Patient was treated with Toradol, Flomax, Zofran and a dose of Cipro he was admitted for further management and plan of care.patient denies ever having surgery before, no family history of any issues with anesthesia. Review of Systems ROS Narrative ROS: a complete review of systems were reviewed with patient and are positive as below or listed in History of Chief Complaint. General: no fever, chills, night sweats Head: no headache, trauma, visual changes, nausea or vomiting Skin: no reported rashes, itching or sores Eyes: no blurriness of vision Ears: no reported hearing loss, vertigo, earache, or tinnitus Throat: no sore throat, hoarseness, swelling of neck, or tongue pain Heart: no chest pain Lungs: no shortness of breath or cough GI: no diarrhea or vomiting/nausea Urinary: no urinary urgency, frequency or pain Neuro: no numbness or tingling HEM: no bleeding issues or bruising ENDO: no thyroid problems Psych: no anxiety or depression PFSH PFSH Social History Smoking status: Never smoker Meds Home Medications and Allergies Home Medications Medication Instructions Recorded Confirmed Type losartan 100 mg tablet 100 mg PO QDAY 02/13/23 02/13/23 History Allergies Allergy/AdvReac Type Severity Reaction Status Date / Time No Known Drug Allergies Allergy Verified 02/14/23 01:00 Exam Narrative Exam Narrative: General: Patient is alert, and oriented to person, place and time with normal affect, proper hygiene, mobid obesity Skin: no visible rashes, or ulcers Head: atraumatic, acephalic Eyes: PERRLA, no nystagmus present, conjunctiva clear, no scleral icterus Ears: normal Tympanic Membrane, normal gross auditory acuity Heart: Normal rate and rhythm, no murmurs/rubs/gallops Lungs: no audible wheezes, crackles and normal breath sounds all lung matos Abdomen: Normal audible bowel sounds, no distension, No palpable masses, no organomegaly, no rebound/guarding/ or rigidity Musculoskeletal: muscle atrophy noted, ROM is limited due to being in hospital bed, no swelling bilateral lower extremities Vascular: Normal carotid, radial, femoral, posterior tibial, and dorsalis pedis pulses Lymph: no supraclavicular, axillary, or anterior/posterior cervical adenopathy Neuro: CN II-X grossly intact, normal sensation upper and lower extremities Constitutional Vital Signs, click to edit/add: Last Vital Signs Temp 98.1 F 02/14/23 07:30 Pulse 74 02/14/23 07:30 Resp 18 02/14/23 07:30 BP 118/85 02/14/23 07:30 Pulse Ox 98 02/14/23 07:30 O2 Del Method Room Air 02/14/23 07:30 Results Labs Labs: Short CBC 02/13/23 02/14/23 Range/Units 17:50 04:43 WBC 10.5 22.2 H (4.0-11.0) 10^3/uL Hgb 14.6 13.6 L (14.0-18.0) g/dL Hct 44.7 41.4 L (42.0-54.0) % Plt Count 309 284 (150-450) 10^3/uL BMP 02/13/23 02/14/23 17:50 04:43 Sodium 134 L 136 Potassium 4.2 3.9 Chloride 100 102 Carbon Dioxide 22.6 25.1 BUN 12.0 17.0 Creatinine 1.03 1.70 H Glucose 140 H 219 H Calcium 9.5 9.1 Liver Function 02/14/23 Range/Units 04:43 Total Bilirubin 0.6 (0.2-1.0) mg/dL AST 7 L (15-37) U/L ALT 24 (16-63) U/L Alkaline Phosphatase 73 (46-116) U/L Albumin 3.2 L (3.4-5.0) g/dL Urine 02/13/23 Range/Units 18:25 Urine Color Lt. yellow (YELLOW) Urine Clarity Slightly cloudy A (CLEAR) Urine pH 6.0 (5.0-9.0) Ur Specific [place] 1.015 (1.005-1.025) Urine Protein Negative (NEG/TRACE) mg/dL Urine Glucose (UA) Negative (NEGATIVE) mg/dL Assessment and Plan Assessment and Plan (1) Hydronephrosis with obstructing calculus: Assessment and Plan: N.p.o., IV fluids. Urology consulted with plans to go to the OR this evening. As needed Toradol, Zofran for pain. Continue Flomax. Empiric Rocephin ordered (2) UTI (urinary tract infection): Assessment and Plan: follow up culture, continue rocephin (3) Hypertension: Assessment and Plan: Iv hydralaxine as needed, will restart losartan after surgery (4) Hyperglycemia: Assessment and Plan: history of taking metformin, has not in many years, will monitor, check ha1c, SSI if needed (5) Hyponatremia: Assessment and Plan: resolved, sodium was 136 (6) Fatty liver: Assessment and Plan: Noted in the setting of history of morbid obesity. LFTs currently normal. Outpatient surveillance with PCP (7) Morbid obesity due to excess calories: Assessment and Plan: Diet and lifestyle modification. Follow-up with PCP for long-term management Plan full code surgical intervention today, hopeful discharge after procedure with urology follow up
[2023-02-14] MEDS: DEXTROSE 5%-0.9% NACL 1,000 ML 1,000 ML 125 ML IV (08:24)
[2023-02-14] MEDS: CEFTRIAXONE 1,000 MG in 0.9 % SODIUM CHLORIDE 50 ML 100 MG IV (09:25)
--- NOTE | 2023-02-14 10:53 | CM.NOTE ---
Rounds made with Dr. Jones, awaiting urology for treatment plan for pt.
[2023-02-14 13:07] LABS: Estimated Average Glucose 143 mg/dL; Glycohemoglobin A1C 6.6 % (4.5-6.2)
--- NOTE | 2023-02-14 14:11 | PC.NURSE ---
not due at this time
[2023-02-14] MEDS: LACTATED RINGER'S SOLUTION 1,000 ML 125 ML IV (14:47)
[2023-02-14] MEDS: LACTATED RINGER'S SOLUTION 1,000 ML 50 ML IV (16:02)
[2023-02-14] MEDS: CEFAZOLIN SODIUM 3,000 MG in 0.9 % SODIUM CHLORIDE 100 ML 200 MG IV (17:04)
--- NOTE | 2023-02-14 17:17 | PM.CN ---
Consult Note: HPI Data of Consult Consult date: 02/14/23 Requesting Physician: Jeannie Jones DO Primary Care Provider: JESSEE RODRÍGUEZ Consult Narrative Reason for consult: left ureteral stone, hydro, UTI Narrative: 33-year-old morbidly obese male (BMI 49) with past medical history of hypertension, [id number]-[id number] type 2 diabetes, and kidney stones presented to the [facility] ER last night with acute left lower quadrant abdominal pain. Endorsed emesis and dysuria but denied fever, chills. Workup revealed WBC 10, Cr 1.[address] AP findings of a 1.1 cm left distal ureteral stone with mild to moderate hydronephrosis, UA +leuk esterase and WBCs. Mildly tachycardic, Tm 99.8F. He received empiric ceftriaxone and was admitted to the hospitalist for further management. Urology was consulted for evaluation. Today, WBC increased to 22, Cr increased to 1.7. Pain currently controlled on toradol, temp wnl on tylenol. Pt is voiding well without passage of stone. Still having mild LLQ pain and dysuria. Of note, was diagnosed with 1 cm kidney stone in [place] last year, initially stated was in his ureter but now states it was in his kidney. No known passage or treatment. cc:: CC: Jeannie Jones DO Review of Systems ROS Constitutional Denies: fever or chills Eyes Denies: change in vision or blurry vision Ears, nose, mouth, and throat Denies: throat pain or throat swelling Cardiovascular Denies: chest pain or palpitations Respiratory Denies: shortness of breath or cough Gastrointestinal Reports: abdominal pain, nausea and vomiting Genitourinary Reports: painful urination; Denies: blood in urine Musculoskeletal Denies: back pain or extremity pain Integumentary/Breast Denies: rash or itching Neurological Denies: headache or weakness in extremities Psychiatric Denies: anxiety or memory loss Hematologic/Lymphatic Denies: easy bruising or easy bleeding [facility] Social History Smoking status: Never smoker Meds Home Medications and Allergies Home Medications Medication Instructions Recorded Confirmed Type losartan 100 mg tablet 100 mg PO QDAY 02/13/23 02/13/23 History Allergies Allergy/AdvReac Type Severity Reaction Status Date / Time No Known Drug Allergies Allergy Verified 02/14/23 01:00 Exam Narrative Exam Narrative: No acute distress, appears nontoxic Nonlabored respirations, symmetric chest rise, on room air Normal rate and rhythm, no peripheral edema Left lower quadrant with mild tenderness to palpation, non distended No CVA or suprapubic tenderness to palpation BL Moves all extremities, no deformities Alert and oriented x 4, no acute focal deficits Skin dry, intact Appropriate, cooperative Constitutional Vital Signs, click to edit/add: Last Vital Signs Temp 97.8 F 02/14/23 14:00 Pulse 87 02/14/23 14:00 Resp 18 02/14/23 14:00 BP 141/94 H 02/14/23 14:00 Pulse Ox 96 02/14/23 14:00 O2 Del Method Room Air 02/14/23 14:00 Results Labs Labs: Short CBC 02/13/23 02/14/23 Range/Units 17:50 04:43 WBC 10.5 22.2 H (4.0-11.0) 10^3/uL Hgb 14.6 13.6 L (14.0-18.0) g/dL Hct 44.7 41.4 L (42.0-54.0) % Plt Count 309 284 (150-450) 10^3/uL BMP 02/13/23 02/14/23 17:50 04:43 Sodium 134 L 136 Potassium 4.2 3.9 Chloride 100 102 Carbon Dioxide 22.6 25.1 BUN 12.0 17.0 Creatinine 1.03 1.70 H Glucose 140 H 219 H Calcium 9.5 9.1 Liver Function 02/14/23 Range/Units 04:43 Total Bilirubin 0.6 (0.2-1.0) mg/dL AST 7 L (15-37) U/L ALT 24 (16-63) U/L Alkaline Phosphatase 73 (46-116) U/L Albumin 3.2 L (3.4-5.0) g/dL Urine 02/13/23 Range/Units 18:25 Urine Color Lt. yellow (YELLOW) Urine Clarity Slightly cloudy A (CLEAR) Urine pH 6.0 (5.0-9.0) Ur Specific [place] 1.015 (1.005-1.025) Urine Protein Negative (NEG/TRACE) mg/dL Urine Glucose (UA) Negative (NEGATIVE) mg/dL Imaging CT scan - abdomen: My impression: Left distal 1.1 cm ureteral stone with mild-mod hydro Radiologist's impression: MRN: [facility]:[id number] date: 1990 Sex: M Assigned Patient Location: ER Current Patient Location: ER Accession/Order Number: [id number] Exam Date: 02/13/2023 18:49 Report Date: 02/13/2023 20:04 At the request of: NAHID LIM Procedure: CT abdomen pelvis wo con EXAMINATION: CT abdomen pelvis wo con REASON FOR EXAM: Pain, rule out kidney stone. Left flank pain. TECHNIQUE: Dose reduction techniques were achieved by using automated exposure control and/or adjustment of mA and/or kV according to patient size and/or use of iterative reconstruction technique. Lung bases: Minor atelectasis right lung base. No pleural effusion. Abdominal findings: There is mild to moderate left-sided hydronephrosis and hydroureter which is secondary to a stone in the pelvic segment of the left ureter. This stone measures 1.1 x 0.6 cm and resides at a location 2.6 cm above the left UVJ. No other nephrolithiasis. There is fatty infiltration of the liver and multiple cholesterol gallstones. No cholecystitis. No biliary dilatation. No pancreatitis or pancreatic ductal dilatation. Adrenal glands are normal. No dilatation of the stomach, duodenum, small bowel, or colon. The appendix is normal. No abnormally dilated small or large bowel. No free air. No ascites. Normal caliber abdominal aorta. Pelvic findings: No pelvic free fluid or abscess. No distention of the urinary bladder. No bladder calculus. CT/CT abdomen pelvis wo con IMPRESSION: 1. Obstructing stone in the pelvic segment of the left ureter. This stone measures up to 1.1 cm in maximal diameter. Mild to moderate left-sided hydronephrosis. 2. Incidental findings include fatty infiltration of the liver and cholelithiasis. Assessment and Plan Assessment and Plan (1) Hydronephrosis with obstructing calculus: (2) UTI (urinary tract infection): (3) Morbid obesity due to excess calories: Plan 33 year old morbidly obese male admitted with 1.1 cm left distal ureteral stone with mild-moderate hydronephrosis and UTI, now with severely elevated leukocytosis and acute renal injury in setting of UTI. After discussion of risks/benefits of management options, he elected to proceed with cystoscopy, left retrograde pyelogram, left ureteral stent placement, possible ureteroscopy with laser lithotripsy/stone extraction under general anesthesia. Discussed inability to treat stone in setting of active infection and need to return at a later date after resolution. Risks were discussed including but not limited to bleeding, pain, infection, damage to surrounding structures, inability to treat the stone/place a stent, and need for additional procedures. The patient understands the stent is not permanent and needs to be removed or exchanged within 3 months to prevent encrustation, infection, invasive procedures and/or permanent renal damage.
[2023-02-14] MEDS: IOHEXOL 240 MG/ML - 10 ML VIAL INJ (17:41)
--- NOTE | 2023-02-14 17:55 | PM.URSON ---
Urology Surgery Operative Note Operative Note Procedure Date: 02/14/23 Time Out Performed: yes Pre-op Diagnosis: 1. Left ureteral stone with hydronephrosis 2. Urinary tract infection 3. Sepsis Post-op Diagnosis: same as pre-op Procedures performed: Cystoscopy, left retrograde pyelogram, left ureteral stent placement Anesthesia: GETA (LMA. Dr. Brar) Primary Surgeon: Madeline Garcia Complications: none Estimated blood loss (mL): 0 Findings: Mild -moderate bilobar prostatic hypertrophy with elevated bladder neck. Pus eminating from left ureteral orifice. Left RPG filling defect ~ 2 cm proximal to UO consistent with known stone, moderate hydroureteronephrosis proximally. Return of purulent urine from left kidney (sent for culture). Specimens: urine for culture Drains: 6Fr x 22-30cm JJ left ureteral stent Incision: none Indications for Procedures: 33 year old morbidly obese male admitted with a 1.1 cm left distal ureteral stone with mild-moderate hydronephrosis and UTI, now with severe leukocytosis, tachycardia and acute renal injury concerning for sepsis. After discussion of risks/benefits of management options, he elected to proceed with cystoscopy, left retrograde pyelogram, left ureteral stent placement, possible ureteroscopy with laser lithotripsy/stone extraction under general anesthesia. Discussed inability to treat stone in setting of active infection and need to return at a later date after resolution. Risks were discussed including but not limited to bleeding, pain, infection, damage to surrounding structures, inability to treat the stone/place a stent, and need for additional procedures. The patient understands the stent is not permanent and needs to be removed or exchanged within 3 months to prevent encrustation, infection, invasive procedures and/or permanent renal damage. Detailed description of Procedure: After informed consent was obtained, the patient was brought to the operating room and transferred onto the operating table in supine position. Sequential compression devices were placed on bilateral lower extremities. The patient received the appropriate dose of preoperative IV antibiotics and general anesthesia LMA was induced. They were positioned in modified dorsolithotomy with the appropriate pressure points padded, prepped, and draped in the usual sterile fashion for this procedure. An operative safety timeout was performed confirming the patient's identity, laterality and procedure, and all present agreed to proceed. I began by inserting a 22 [place] rigid cystoscope with 30 degree lens into the patient's urethra and bladder without difficulty. There were no bladder tumors, lesions, stones or foreign bodies. Bilateral ureteral orifices were orthotopic and patent. I turned my attention to the left ureteral orifice and a 6- [place] open-ended catheter was inserted into the ureteral orifice. Gentle instillation of contrast was injected for retrograde pyelogram with findings as above. Full evaluation was limited to prevent pyelovenous backflow. A sensor wire was inserted into the catheter to bypass the radiopaque ureteral stone up to the renal pelvis confirmed on fluoroscopy and the catheter was removed. Return of purulent urine sent for culture, hydronephrotic drip. A 6Fr x 22-30cm JJ variable length ureteral stent was advanced over the wire, noting adequate curl in the renal pelvis and bladder on fluoroscopic and direct visualization. The bladder was irrigated until clear and inspected one final time to ensure adequate position of stent and no undue trauma to the bladder was done. The bladder was drained and cystoscope was removed. The patient tolerated the procedure well without complication. The patient was awakened from anesthesia and sent to the PACU in stable condition. Plan: -Cont care on the floor per primary. -Cont empiric abx and f/u urine culture to ensure on sensitive abx x 7-10 days -Tamsulosin 0.4mg qd, oxybutynin 5 mg TID PRN for bladder spasms/stent pain, pyridium 100-200mg TID PRN for dysuria. -Follow up in 1-2 weeks in the office to discuss definitive stone treatment. Other Provider present: No Post Operative care instructions: see discharge instructions
[2023-02-14 18:25] LABS: Bilirubin Urine NEGATIVE (NEGATIVE); Blood Urine LARGE (NEGATIVE); Clarity Urine CLEAR (CLEAR); Color Urine LT. YELLOW (YELLOW); Glucose Urine UA NEGATIVE (NEGATIVE); Ketones Urine NEGATIVE (NEGATIVE); Leukocyte Esterase Urine LARGE (NEGATIVE); Nitrite Urine NEGATIVE (NEGATIVE); Protein Urine NEGATIVE (NEG/TRACE); Urobilinogen Urine 0.2 EU/dL (0.2-1.0); pH Urine 5.5 (5.0-9.0)
[2023-02-14 18:32] LABS: Bacteria Urine TRACE #/HPF (NONE SEEN); Cast Seen? NONE SEEN #/LPF (NONE SEEN); Crystals Seen? None Seen #/HPF (None Seen); Mucus Urine NONE SEEN (NONE SEEN); RBC Urine 20-50 #/HPF (0-2); Squamous Epithelial Cell Urine RARE #/LPF (NONE/RARE); Urine Culture Indicated YES; WBC Urine 20-50 #/HPF (NONE SEEN)
[2023-02-14 20:43] LABS: Glucometer 330 mg/dL (74-106)
--- NOTE | 2023-02-14 23:01 | PC.NURSE ---
Pts glucose 330. Pt stated he is not insulin dependant. Educated pt on why he should take it and the risks of having such high sugar. he still declined.
[2023-02-15] MEDS: LACTATED RINGER'S SOLUTION 1,000 ML 125 ML IV ×2 (01:06→08:14)
[2023-02-15] MEDS: KETOROLAC TROMETHAMINE 30 MG/ML VIAL IVP ×3 (02:23→13:21)
[2023-02-15 05:11] VITALS: BP 113/73; PULSE 71; RESP 16; TEMP 36.8; O2SAT 95
[2023-02-15 05:22] LABS: Basophils Percent Auto 0.2 % (0.2-2.0); Eosinophils Percent Auto 0.2 % (0.9-7.0); Hematocrit 39.8 % (42.0-54.0); Hemoglobin 12.8 g/dL (14.0-18.0); Immature Granulocytes Abs Auto 0.06 10^3/uL (0.00-0.03); Immature Granulocytes Pct Auto 0.5 % (0.0-0.5); Lymphocytes Absolute Auto 1.2 10^3/uL (1.2-3.8); Lymphocytes Percent Auto 9.6 % (20.5-60.0); Mean Corpuscular HGB Conc 32.2 g/dL (29.9-35.2); Mean Corpuscular Hemoglobin 28.2 pg (25.9-34.0); Mean Corpuscular Volume 87.7 fL (80.0-94.0); Mean Platelet Volume 10.8 fL (9.5-13.5); Monocytes Absolute Auto 1.3 10^3/uL (0.3-0.8); Monocytes Percent Auto 10.1 % (1.7-12.0); Neutrophils Absolute Auto 10.2 10^3/uL (1.4-6.5); Neutrophils Percent Auto 79.4 % (43.0-75.0); Platelet Count 236 10^3/uL (150-450); Red Blood Count 4.54 10^6/uL (4.70-6.10); Red Cell Distribution Width 13.2 % (11.0-15.0); White Blood Count 12.8 10^3/uL (4.0-11.0)
[2023-02-15 05:46] LABS: Alanine Aminotransferase 12 U/L (16-63); Albumin Globulin Ratio 0.7; Albumin Level 2.9 g/dL (3.4-5.0); Alkaline Phosphatase 72 U/L (46-116); Anion Gap 10.2; Aspartate Amino Transferase 12 U/L (15-37); BUN Creatinine Ratio 11.5; Bilirubin Total 0.5 mg/dL (0.2-1.0); Calcium 8.7 mg/dL (8.5-10.1); Chloride 105 mmol/L (98-107); Estimated GFR (African America >60 (>=60); Estimated GFR (Non-African Ame >60 (>=60); Globulin 4.1 g/dL; Glucose 200 mg/dL (74-106); Potassium 4.2 mmol/L (3.5-5.1); Sodium 137 mmol/L (136-145)
[2023-02-15 06:00] VITALS: BP 113/73; PULSE 71; RESP 16; TEMP 36.8; O2SAT 95
[2023-02-15] MEDS: CEFTRIAXONE 1,000 MG in 0.9 % SODIUM CHLORIDE 50 ML 100 MG IV (08:14)
[2023-02-15] MEDS: TAMSULOSIN HCL 0.4 MG CAPSULE PO (08:14)
--- NOTE | 2023-02-15 08:56 | PM.DS1 ---
DS: Providers Provider Date of admission: 02/13/23 21:18 Primary care physician: JESSEE RODRÍGUEZ Admitting clinician: Amy Salazar Consults: 02/14/23 06:45 Consult to Urology Routine Consulting Provider: Madeline Garcia Reason for consultation: left obstructing stone with hydroN Attending physician on discharge: Jeannie Jones DS: Diagnosis Discharge Diagnosis (1) Hydronephrosis with obstructing calculus: (2) UTI (urinary tract infection): (3) Morbid obesity due to excess calories: DS: Summary Status at Discharge Cognitive/behavioral status at discharge: patient was admitted with a left 1.1 cm obstructive stone with hydronephrosis. Patient was taken to the operating room on 02/14/2023 for a cystoscopy and left retrograde pyelogram with left ureteral stent placement. Patient is one day postop and reports overall pain is controlled and does not have any significant issues this morning. Patient has remained afebrile. Patient was also found to have an acute urinary tract infection and a purulent stone in the left kidney that was sent for culture. Cultures from the stone as well as a urine culture are pending this morning. White count has decreased significantly and is almost in normal range at 12.8. Patient is remained afebrile is currently under pain control no further concerns on exam this morning. Patient has close follow-up artery scheduled with urology. Patient needs to resume metformin that he was on many years ago at 500 mg twice a day for type 2 diabetes. I also placed him on ciprofloxacin 500 mg twice a day ?7 days and urology can follow-up culture results if they need to adjust antibiotics at his follow-up appointment. He will be discharged home today in stable condition with appropriate follow-ups. Overall status at discharge: patient is back to baseline Time Spent with Patient Time attestation: Total time spent providing and/or coordinating discharge services: Time spent: less than 30 minutes Exam Narrative Exam Narrative: General: Patient is alert, and oriented to person, place and time with normal affect, proper hygiene Skin: no visible rashes, or ulcers Head: atraumatic, acephalic Heart: Normal rate and rhythm, no murmurs/rubs/gallops Lungs: no audible wheezes, crackles and normal breath sounds all lung matos Abdomen: Normal audible bowel sounds, no distension, No palpable masses, no organomegaly, no rebound/guarding/ or rigidity Neuro: CN II-X grossly intact, normal sensation upper and lower extremities Constitutional Vital Signs, click to edit/add: Last Vital Signs Temp 98.2 F 02/15/23 06:00 Pulse 71 02/15/23 06:00 Resp 16 02/15/23 06:00 BP 113/73 02/15/23 06:00 Pulse Ox 95 02/15/23 06:00 O2 Del Method Room Air 02/15/23 06:00 DS: Data Data Completed and Pending Labs on day of discharge: Labs from last 24 hours 02/15/23 02/14/23 02/14/23 04:53 20:42 17:40 WBC 12.8 H RBC 4.54 L Hgb 12.8 L Hct 39.8 L MCV 87.7 MCH 28.2 MCHC 32.2 RDW 13.2 Plt Count 236 MPV 10.8 Neut % (Auto) 79.4 H Lymph % (Auto) 9.6 L [place] % (Auto) 10.1 Eos % (Auto) 0.2 L Baso % (Auto) 0.2 Neut # (Auto) 10.2 H Lymph # (Auto) 1.2 [place] # (Auto) 1.3 H Eos # (Auto) 0.0 Baso # (Auto) 0.0 Abs Immat Gran (auto) 0.06 H Imm/Tot Granulo (auto) 0.5 Sodium 137 Potassium 4.2 Chloride 105 Carbon Dioxide 26.0 Anion Gap 10.2 BUN 14.0 Creatinine 1.22 Est GFR ( Amer) >60 Est GFR (Non-Af Amer) >60 BUN/Creatinine Ratio 11.5 Glucose 200 H Estimat Average Glucose Hemoglobin A1c Calcium 8.7 Total Bilirubin 0.5 AST 12 L ALT 12 L Alkaline Phosphatase 72 Total Protein 7.0 Albumin 2.9 L Globulin 4.1 Albumin/Globulin Ratio 0.7 Urine Color Lt. yellow Urine Clarity Clear Urine pH 5.5 Ur Specific [place] 1.010 Urine Protein Negative Urine Glucose (UA) Negative Urine Ketones Negative Urine Occult Blood Large A Urine Nitrite Negative Urine Bilirubin Negative Urine Urobilinogen 0.2 Ur Leukocyte Esterase Large A Urine RBC 20-50 A Urine WBC 20-50 A Ur Squamous Epith Cells Rare Urine Crystals None seen Urine Bacteria Trace A Urine Casts None seen Urine Mucus None seen Ur Culture Indicated? Yes POC Glucose 330 H 02/14/23 04:43 WBC RBC Hgb Hct MCV MCH MCHC RDW Plt Count MPV Neut % (Auto) Lymph % (Auto) [place] % (Auto) Eos % (Auto) Baso % (Auto) Neut # (Auto) Lymph # (Auto) [place] # (Auto) Eos # (Auto) Baso # (Auto) Abs Immat Gran (auto) Imm/Tot Granulo (auto) Sodium Potassium Chloride Carbon Dioxide Anion Gap BUN Creatinine Est GFR ( Amer) Est GFR (Non-Af Amer) BUN/Creatinine Ratio Glucose Estimat Average Glucose 143 Hemoglobin A1c 6.6 H Calcium Total Bilirubin AST ALT Alkaline Phosphatase Total Protein Albumin Globulin Albumin/Globulin Ratio Urine Color Urine Clarity Urine pH Ur Specific [place] Urine Protein Urine Glucose (UA) Urine Ketones Urine Occult Blood Urine Nitrite Urine Bilirubin Urine Urobilinogen Ur Leukocyte Esterase Urine RBC Urine WBC Ur Squamous Epith Cells Urine Crystals Urine Bacteria Urine Casts Urine Mucus Ur Culture Indicated? POC Glucose Discharge Plan Discharge Disposition: Home, Self-Care Discharge Medications: New oxybutynin chloride 5 mg tablet 5 mg PO TID PRN (Reason: bladder spasms) Qty: 90 0RF tamsulosin 0.4 mg capsule 0.4 mg PO DAILY Qty: 30 1RF metformin 500 mg tablet 500 mg PO BID Qty: 60 0RF ciprofloxacin HCl 500 mg tablet 500 mg PO Q12H 7 Days Qty: 14 0RF Continued losartan 100 mg tablet 100 mg PO QDAY Activity: increase activity as tolerated Diet: advance to your usual diet Patient Instructions: Kidney Stones (DC), Ureteral Stent Placement (DC) Activity Restrictions/Additional Instructions: Tylenol 650-1000 mg every 6 hours alternated with ibuprofen 400-600 mg every 6 hours in between as needed for post-op pain. Tamsulosin daily for stent pain, difficulty voiding. If you get dizzy or lightheaded, take at night or stop. Do not take with other blood pressure medications Oxybutynin 5 mg every 8 hours as needed for bladder spasms and stent pain. Drink plenty of fluids, take stool softeners as needed for constipation, dry mouth and dry eyes. AZO for urinary discomfort/burning can be purchased at local pharmacy. This will make your urine orange. Return to ER for fevers > 101.5F, uncontrolled nausea/emesis, uncontrolled pain, or inability to void. You must return for follow up to ensure your stent is removed. If not exchanged/removed within 3 months you risk infection, obstruction, renal failure and need for more invasive procedures including kidney removal. Forms: Portal Instructions Referrals: Madeline Garcia MD [Physician] - (Follow up in 1-2 weeks to discuss and schedule definitive stone treatment ) Follow Up Appointments: Follow up appt. with Dr. Garcia (urology) on Feb.23 @ 11:15am [facility], [address] [facility] Office #: [phone]
[2023-02-15 12:02] LABS: Glucometer 176 mg/dL (74-106)
--- NOTE | 2023-02-15 13:37 | CM.NOTE ---
Rounds made with ozzie Bassett for pt to discharge to home. No discharge needs identified. Pt will see his primary care physician this afternoon.
--- NOTE | 2023-02-16 16:18 | CM.DCFOLLOWU ---
Person spoke with: patient How are you feeling? sore all over How is your pain? just soreness, advised if pain in uncontrollable to come back to ER or reach out to PCP Did you understand your discharge instructions? yes Do you have any questions about your discharge instructions? no Were you given any prescriptions at discharge? yes Were you able to get your prescriptions filled? yes Do you understand how to take your medications as ordered? yes Do you have any questions about your follow up appointment and do you plan to keep your follow up appointment? no questions, has follow up on 02/24/23 Is there anything else that you would like to discuss? no Questions/Comments/Concerns/Other:
== END 2023-02-15 14:10 | disposition home or self-care (01) ==
LOC: ER 19:17 → MS 21:22
PROVIDERS: Emergency Medicine; Internal Medicine; Urology; Admitting Provider Family Medicine; Emergency Provider Internal Medicine; PCP Nurse Practitioner Primary Care; Visit Provider Family Medicine
PROC: (CPT 00910; principal; 2023-02-14 16:00)
DX: N13.6 Pyonephrosis (principal); E66.01 Morbid (severe) obesity due to excess calories; E11.9 Type 2 diabetes mellitus without complications; Z68.42 Body mass index [BMI] 45.0-49.9, adult; Z87.442 Personal history of urinary calculi; I10 Essential (primary) hypertension; K76.0 Fatty (change of) liver, not elsewhere classified; E87.1 Hypo-osmolality and hyponatremia; N17.9 Acute kidney failure, unspecified; B96.20 Unspecified Escherichia coli [E. coli] as the cause of diseases classified elsewhere
CPT/HCPCS: 00910; 52332; 36415; 74176; 74420; 80048; 80053; 81001; 82948; 83036; 85025; 87086; 87150; 87186; 96365; 96366; 96367; 96375; 96376; 99285; 99999; C1874; G0378; J2704; Q3014; Q9966

== ENCOUNTER 2023-02-25 14:41 | Outpatient (OUT) | payer MEDICAID, SELFPAY | END 2023-02-25 14:42 | disposition home or self-care (01) | LOC: PST 14:41 | PROVIDERS: PCP Nurse Practitioner Primary Care; Visit Provider Urology | DX: Z01.818 Encounter for other preprocedural examination (principal); N20.1 Calculus of ureter ==

== ENCOUNTER 2023-03-02 12:32 | Day surgery (SDC) | payer MEDICAID, SELFPAY ==
[2023-03-02] VITALS (10 sets, daily range): BP systolic 132–170; BP diastolic 88–117; PULSE 79–95; RESP 13–23; TEMP 36.2; O2SAT 91–99; BMI 49.9
[2023-03-02] MEDS: LACTATED RINGER'S SOLUTION 1,000 ML 50 ML IV ×2 (13:11→15:30)
[2023-03-02 13:17] LABS: Glucometer 128 mg/dL (74-106)
[2023-03-02] MEDS: CEFAZOLIN SODIUM/DEXTROSE,ISO 2 GM/50 ML PIGGYBACK IV (14:03)
[2023-03-02] MEDS: IOHEXOL 240 MG/ML - 10 ML VIAL INJ (15:24)
--- NOTE | 2023-03-02 15:39 | P.URON_ITS ---
Urology Surgery Operative Note Operative Note Procedure Date: 03/02/23 Time Out Performed: yes Pre-op Diagnosis: Left distal ureteral stone Post-op Diagnosis: same as pre-op Procedures performed: Cystoscopy, left retrograde pyelogram, ureteroscopy laser lithotripsy/stone extraction, stent exchange Anesthesia: GETA (ETT, Dr. Beltran Brar ) Primary Surgeon: Madeline Garcia Complications: none Estimated blood loss (mL): 0 Findings: Mild bilobar prostatic hypertrophy with elevated bladder neck. Radiopaque 1 cm dark, hard distal ureteral stone underwent uncomplicated laser lithotripsy and stone extraction. L RPG- mild hydronephrosis, no extravasation or filling defects after stone ellen ated Specimens: left ureteral stone Drains: 6Fr x 22-30 cm JJ left ureteral stent Incision: none Indications for Procedures: 33 year old male was diagnosed with a 1 cm left distal ureteral stones and urosepsis s/p stent placement on 02/14/23. After discussion of risks/benefits of management options in clinic, he elected to proceed with definitive stone treatment of cystoscopy, left retrograde pyelogram, ureteroscopy with laser lithotripsy/stone extraction, ureteral stent exchange under general anesthesia. Risks were discussed including but not limited to bleeding, pain, infection, damage to surrounding structures, inability to treat the stone/place a stent, and need for additional procedures. The patient understands the stent is not permanent and needs to be removed or exchanged within 3 months to prevent encrustation, infection, invasive procedures and/or permanent renal damage. Detailed description of Procedure: After informed consent was obtained, the patient was brought to the operating room and transferred onto the operating table in supine position. Sequential compression devices were placed on bilateral lower extremities. The patient received the appropriate dose of preoperative IV antibiotics and general anesthesia ETT was induced. They were positioned in modified dorsolithotomy with the appropriate pressure points padded, prepped, and draped in the usual sterile fashion for this procedure. An operative safety timeout was performed confirming the patient's identity, laterality and procedure, and all present agreed to proceed. A spot radiograph was done showing left stent in place with distal ureteral stone. I began by inserting a 22 Czech rigid cystoscope with 30 degree lens into the patient's urethra and bladder without difficulty. There were no bladder tumors, lesions, or stones. Bilateral ureteral orifices were orthotopic and patent. I turned my attention to the left ureteral orifice and brought the indwelling ureteral stent to the meatus with flexible graspers. A Sensor wire was inserted into the stent up to the renal pelvis confirmed on fluoroscopy, stent was removed without difficulty. Next a semirigid ureteroscope was inserted along the wire to get access to the distal ureteral stone. A 275 ?m holmium laser fiber was used to break the stone into fragments which were then removed with a 2.2 tipless nitinol basket. After the stone was adequately treated, a full ureteroscopy to the proximal ureter was performed confirming no significant residual stones or fragments remained. Contrast was injected for retrograde pyelogram with findings as above. A pull down ureteroscopy was performed confirming no stones remained in the ureter. The wire was backloaded through the cystoscope and 6Fr x 22-30cm JJ variable length ureteral stent was advanced over the wire, noting adequate curl in the renal pelvis and bladder on fluoroscopic and direct visualization. The bladder was drained of stones and inspected one final time to ensure adequate position of stent and no undue trauma to the bladder was done. The stones were sent for pathology and the cystoscope was removed. The patient tolerated the procedure well without complication. The patient was awakened from anesthesia and sent to PACU in stable condition. Plan: Discharge home with stent pain medications. Follow up next week for in- office cystoscopy, stent removal. Other Provider present: No Post Operative care instructions: See discharge instructions Attending Doc Confirm Attending Attestation: Yes
[2023-03-09 22:06] LABS: Calcium Oxalate Monohydrate 100 % (.); Size 5x4 mm (.)
== END 2023-03-02 16:45 | disposition home or self-care (01) ==
PROVIDERS: PCP Nurse Practitioner Primary Care; Visit Provider Urology
PROC: (CPT 918; principal; 2023-03-02 13:40)
DX: N13.2 Hydronephrosis with renal and ureteral calculous obstruction (principal); Z87.440 Personal history of urinary (tract) infections; Z79.84 Long term (current) use of oral hypoglycemic drugs; R35.0 Frequency of micturition
CPT/HCPCS: 52356; 36415; 36416; 74420; 82365; 82948; 99999; C1874; J2704; Q9966

== ENCOUNTER 2023-12-05 03:30 | Emergency (ER) | payer SELFPAY ==
[2023-12-05 03:35] VITALS: BP 175/94; PULSE 82; O2SAT 96; BMI 50.8
--- NOTE | 2023-12-05 03:38 | ED.EXTPRO1 ---
HPI - Extremity Problem General Chief complaint: Extremity Problem, Nontraumatic Stated complaint: lower leg pain Time Seen by Provider: 12/05/23 03:36 History of Present Illness HPI Narrative: 33-year-old male with a history of type 2 diabetes, morbid obesity and high blood pressure but does not smoke presents for evaluation of 1 week of left lower extremity pain. The patient states the pain started in the lateral aspect of his left foot. It then went into his ankle. It then went from the ankle to the lower knee, mid knee and upper knee and now is along the lateral aspect of the thigh and into the buttock and he states he feels like his toes are tingling. He denies any injury. 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 He states the pain is worse when he is lying down and cannot get into a comfortable position. He has been taking Tylenol without significant improvement in his pain. He denies any injury. He has no chest pain or shortness of breath. He denies any fever. I reviewed notes from prior ER visits when it was thought that he may have gout. At this time he is not complaining of any foot or ankle pain whatsoever. The pain is mostly in the posterior and lateral aspect of his left thigh in the area of the iliotibial band. Related Data Home Medications ?Medication ?Instructions ?Recorded ?Confirmed losartan 100 mg tablet 100 mg PO QDAY 02/13/23 03/02/23 tamsulosin 0.4 mg capsule (Flomax) 0.4 mg PO DAILY 03/02/23 03/02/23 Previous Rx's ?Medication ?Instructions ?Recorded ciprofloxacin HCl 500 mg tablet 500 mg PO Q12H 7 days #14 tabs 02/15/23 metformin 500 mg tablet 500 mg PO BID #60 tabs 02/15/23 oxybutynin chloride 5 mg tablet 5 mg PO TID PRN stent pain, 03/02/23 bladder spasms #30 tabs sulfamethoxazole 800 1 tab PO BID Start morning of 03/02/23 mg-trimethoprim 160 mg tablet stent removal next week #2 tabs (Bactrim DS) Allergies Allergy/AdvReac Type Severity Reaction Status Date / Time No Known Drug Allergies Allergy Verified 02/14/23 01:00 Review of Systems ROS Status of ROS 10 or more systems reviewed and unremarkable except as noted in history and below [facility] Medical History (Updated 12/05/23 @ 05:07 by Sada Severino MD) Diabetes ?E11.9 - Type 2 diabetes mellitus without complications (ICD-10) Prediabetes ?R73.03 - Prediabetes (ICD-10) Surgical History (Updated 02/25/23 @ 13:31 by Racheal Kilpatrick NP) H/O cystoscopy (02/14/23) ?Z98.890 - Other specified postprocedural states (ICD-10) Family History (Updated 02/25/23 @ 14:34 by Racheal Kilpatrick NP) Other Family history of diabetes mellitus Family history of hypertension Family history of myocardial infarction Social History (Updated 02/25/23 @ 14:32 by Racheal Kilpatrick NP) Within the past year, how often did you have a drink containing alcohol: monthly or less Smoking status: Never smoker 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 Highest level of school completed/degree received: high school graduate Exam Narrative Exam Narrative: Vital signs and Nursing Notes reviewed: He has a normal pulse, blood pressure is elevated 175/94, he is not hypoxic with pulse ox 96% on room air General: Awake, alert, oriented, obese male, he is lying on his right hip due to pain in the left hip and buttock area HEENT: Normocephalic atraumatic, mucous membranes are moist and pink, eyes are clear, normal conjunctiva, vision is grossly intact Chest: Lungs are clear to auscultation with good air entry, there is no wheezing rhonchi or rales appreciated no accessory muscle use, patient is speaking in complete sentences-no chest wall tenderness to palpation CVS: Regular rate and rhythm S1-S2, no murmurs rubs or gallops, pulses are brisk and equal bilaterally ABD: Soft, nondistended, nontender, no rebound guarding or rigidity, bowel sounds are normal, no pulsatile masses appreciated Extremities: Patient is wearing shorts. Legs were compared [id number], the right leg circumference is 24 cm on the left leg circumferences 22 cm. There is no foot tenderness, redness swelling or notable abnormality. Dorsalis pedis pulses brisk. Feet are warm and sensate. There is no ankle tenderness or deformity noted. Calfs are nontender with no palpable cords or induration. There is no reproducible tenderness or notable abnormality in the knee. There is no reproducible tenderness along the iliotibial band or in the buttock. There is no redness, swelling along the entire extremity Skin: Normal in appearance without rash,pallor, petechiae or purpura Neuro: No focal deficits Constitutional Vital Signs, click to edit/add: Last Vital Signs Pulse 82 12/05/23 03:35 Resp 18 12/05/23 03:35 BP 175/94 H 12/05/23 03:35 Pulse Ox 96 12/05/23 03:35 O2 Del Method Room Air 12/05/23 03:35 Course Vital Signs Vital signs: Vital Signs Pulse Rate 82 12/05/23 03:35 Respiratory Rate 18 12/05/23 03:35 Blood Pressure 175/94 H 12/05/23 03:35 Pulse Oximetry 96 12/05/23 03:35 Oxygen Delivery Method Room Air 12/05/23 03:35 Pulse Rate 82 12/05/23 03:35 Respiratory Rate 18 12/05/23 03:35 Blood Pressure 175/94 H 12/05/23 03:35 Pulse Oximetry 96 12/05/23 03:35 Oxygen Delivery Method Room Air 12/05/23 03:35 MDM - Extremity (Nontraumatic) MDM Narrative Medical decision making narrative: This 33-year-old male who is morbidly obese and a non-smoker presents for evaluation of left leg pain that started in his left foot and ankle approximately 1 week ago travel to his knee and now is in the lateral aspect of his thigh and posterior aspect of his thigh and lower buttock area. The left leg is not swollen, red or have notable injury. He did was diagnosed with gout in the past but this does not appear to be gout related. He is not having any toe or foot pain at this time. He has been taking ibuprofen and Tylenol without relief. His physical exam was benign. I was unable to ascertain any notable abnormality. His right calf was 24cm and left calf was 22 cm, however he is not having any RLE pain. He is a type II diabetic. He was medicated emergency department with 60 mg of IM Toradol and routine labs are ordered and are reviewed. He has a normal white count and hemoglobin. Electrolytes are normal with the exception of a elevated glucose at 273. D-dimer is elevated at 1.5. X-ray of the left foot was reviewed by radiology and does not show any acute findings. I discussed the results of his labs with him and offered him an outpatient ultrasound or ultrasound when they are available after 7 AM. He opts to stay in the emergency department until the ultrasound is available at 7 AM. He will be medicated with a dose of morphine and Zofran for comfort until that time. The patient's right leg was 2 cm greater than the left leg and I will order ultrasounds of both legs due to this finding Medical Records Medical records narrative: [facility] [id number] XRay Report Signed Patient: JACQUELINE GUY MR#: [id number] : 1990 Acct:[id number] Age/Sex: 33 / M ADM Date: 12/05/23 Loc: ER Attending Dr: Ordering Physician: Sada Severino Date of Service: 12/05/23 Procedure(s): XR foot LT min 3V Accession Number(s): [id number] cc: Sada Marker; Physician,Non-Staff M.D.~ [facility] [id number] Patient Name: JACQUELINE GUY MRN: [id number] date: 1990 Sex: M Assigned Patient Location: ER Current Patient Location: ED.MAIN Accession/Order Number: [id number] Exam Date: 12/05/2023 04:10 Report Date: 12/05/2023 04:29 At the request of: SADA SEVERINO Procedure: XR foot LT min 3V EXAM: XR foot LT min 3V HISTORY: lateral foot pain COMPARISON: None. TECHNIQUE: 3 view left foot FINDINGS: No acute fracture, subluxation or dislocation. Mild dorsal forefoot soft tissue swelling. Remaining soft tissues are intact. No opaque foreign body or gas in the tissues. No erosive or destructive bone changes. No lytic or blastic lesion. There is a bony arthrodesis across the first tarsometatarsal joint. Mild chronic hammertoe changes of third and fourth digits. 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 Remaining joint spaces are maintained. XR/XR foot LT min 3V IMPRESSION: 1. No acute bone or joint findings. No destructive bone changes. 2. Bony arthrodesis across the first tarsometatarsal joint. 3. 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 4. Query mild dorsal forefoot swelling. Correlate with exam. Electronically authenticated by: CHANDNI ANDINO Date: 12/05/2023 04:29 Lab Data Labs: Lab Results 12/05/23 Range/Units 04:12 WBC 9.8 (4.0-11.0) 10^3/uL RBC 4.84 (4.70-6.10) 10^6/uL Hgb 14.2 (14.0-18.0) g/dL Hct 42.7 (42.0-54.0) % MCV 88.2 (80.0-94.0) fL MCH 29.3 (25.9-34.0) pg MCHC 33.3 (29.9-35.2) g/dL RDW 12.2 (11.0-15.0) % Plt Count 306 (150-450) 10^3/uL MPV 10.3 (9.5-13.5) fL Neut % (Auto) 67.9 (43.0-75.0) % Lymph % (Auto) 18.2 L (20.5-60.0) % [place] % (Auto) 10.6 (1.7-12.0) % Eos % (Auto) 1.3 (0.9-7.0) % Baso % (Auto) 0.7 (0.2-2.0) % Neut # (Auto) 6.7 H (1.4-6.5) 10^3/uL Lymph # (Auto) 1.8 (1.2-3.8) 10^3/uL [place] # (Auto) 1.0 H (0.3-0.8) 10^3/uL Eos # (Auto) 0.1 (0.0-0.7) 10^3/uL Baso # (Auto) 0.1 (0.0-0.1) 10^3/uL Abs Immat Gran (auto) 0.13 H (0.00-0.03) 10^3/uL Imm/Tot Granulo (auto) 1.3 H (0.0-0.5) % PT 11.5 (9.0-11.6) sec INR 1.09 D-Dimer 1.55 H* (<=0.59) mg/L FEU Sodium 135 L (136-145) mmol/L Potassium 3.6 (3.5-5.1) mmol/L Chloride 101 (98-107) mmol/L Carbon Dioxide 23.4 (21.0-32.0) mmol/L Anion Gap 14.2 BUN 13.0 (7.0-18.0) mg/dL Creatinine 1.20 (0.70-1.30) mg/dL Est GFR ( Amer) >60 (>=60) Est GFR (Non-Af Amer) >60 (>=60) BUN/Creatinine Ratio 10.8 Glucose 273 H (74-106) mg/dL Calcium 9.4 (8.5-10.1) mg/dL Total Bilirubin 0.4 (0.2-1.0) mg/dL AST 19 (15-37) U/L ALT 32 (16-63) U/L Alkaline Phosphatase 80 (46-116) U/L Total Protein 8.0 (6.4-8.2) g/dL Albumin 3.3 L (3.4-5.0) g/dL Globulin 4.7 g/dL Albumin/Globulin Ratio 0.7 Discharge Plan Discharge Chief Complaint: Extremity Problem, Nontraumatic Clinical Impression: Left leg pain Patient Disposition: Still a Patient Prescriptions / Home Meds: No Action losartan 100 mg tablet 100 mg PO QDAY metformin 500 mg tablet 500 mg PO BID Qty: 60 0RF ciprofloxacin HCl 500 mg tablet 500 mg PO Q12H 7 Days Qty: 14 0RF tamsulosin [Flomax] 0.4 mg capsule 0.4 mg PO DAILY sulfamethoxazole-trimethoprim [Bactrim DS] 800-160 mg tablet 1 tab PO BID Qty: 2 0RF oxybutynin chloride 5 mg tablet 5 mg PO TID PRN (Reason: stent pain, bladder spasms) Qty: 30 0RF Print Language: Slovak Referrals: Wilmer Wilson NP [Physician] - 1 week
--- NOTE | 2023-12-05 03:54 | XR_ITS ---
[facility] [id number] Patient Name: JACQUELINE GUY MRN: [id number] date: 1990 Sex: M Assigned Patient Location: ER Current Patient Location: ED.MAIN Accession/Order Number: [id number] Exam Date: 12/05/2023 04:10 Report Date: 12/05/2023 04:29 At the request of: SHERRY MARKER Procedure: XR foot LT min 3V EXAM: XR foot LT min 3V HISTORY: lateral foot pain COMPARISON: None. TECHNIQUE: 3 view left foot FINDINGS: No acute fracture, subluxation or dislocation. Mild dorsal forefoot soft tissue swelling. Remaining soft tissues are intact. No opaque foreign body or gas in the tissues. No erosive or destructive bone changes. No lytic or blastic lesion. There is a bony arthrodesis across the first tarsometatarsal joint. Mild chronic hammertoe changes of third and fourth digits. 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 Remaining joint spaces are maintained. XR/XR foot LT min 3V IMPRESSION: 1. No acute bone or joint findings. No destructive bone changes. 2. Bony arthrodesis across the first tarsometatarsal joint. 3. 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 4. Query mild dorsal forefoot swelling. Correlate with exam. Electronically authenticated by: CHANDNI ANDINO Date: 12/05/2023 04:29
[2023-12-05 04:21] LABS: Basophils Absolute Auto 0.1 10^3/uL (0.0-0.1); Basophils Percent Auto 0.7 % (0.2-2.0); Eosinophils Absolute Auto 0.1 10^3/uL (0.0-0.7); Eosinophils Percent Auto 1.3 % (0.9-7.0); Hematocrit 42.7 % (42.0-54.0); Hemoglobin 14.2 g/dL (14.0-18.0); Immature Granulocytes Abs Auto 0.13 10^3/uL (0.00-0.03); Immature Granulocytes Pct Auto 1.3 % (0.0-0.5); Lymphocytes Absolute Auto 1.8 10^3/uL (1.2-3.8); Lymphocytes Percent Auto 18.2 % (20.5-60.0); Mean Corpuscular HGB Conc 33.3 g/dL (29.9-35.2); Mean Corpuscular Hemoglobin 29.3 pg (25.9-34.0); Mean Corpuscular Volume 88.2 fL (80.0-94.0); Mean Platelet Volume 10.3 fL (9.5-13.5); Monocytes Percent Auto 10.6 % (1.7-12.0); Neutrophils Absolute Auto 6.7 10^3/uL (1.4-6.5); Neutrophils Percent Auto 67.9 % (43.0-75.0); Platelet Count 306 10^3/uL (150-450); Red Blood Count 4.84 10^6/uL (4.70-6.10); Red Cell Distribution Width 12.2 % (11.0-15.0); White Blood Count 9.8 10^3/uL (4.0-11.0)
[2023-12-05 04:36] LABS: Alanine Aminotransferase 32 U/L (16-63); Albumin Globulin Ratio 0.7; Albumin Level 3.3 g/dL (3.4-5.0); Alkaline Phosphatase 80 U/L (46-116); Anion Gap 14.2; Aspartate Amino Transferase 19 U/L (15-37); BUN Creatinine Ratio 10.8; Bilirubin Total 0.4 mg/dL (0.2-1.0); Calcium 9.4 mg/dL (8.5-10.1); Carbon Dioxide 23.4 mmol/L (21.0-32.0); Chloride 101 mmol/L (98-107); Estimated GFR (African America >60 (>=60); Estimated GFR (Non-African Ame >60 (>=60); Globulin 4.7 g/dL; Glucose 273 mg/dL (74-106); Potassium 3.6 mmol/L (3.5-5.1); Sodium 135 mmol/L (136-145)
[2023-12-05 04:40] LABS: INR 1.09; Prothrombin Time 11.5 sec (9.0-11.6)
[2023-12-05 04:43] LABS: D Dimer 1.55 mg/L FEU (<=0.59)
[2023-12-05] MEDS: KETOROLAC TROMETHAMINE 60 MG/2 ML VIAL IM (04:50)
--- NOTE | 2023-12-05 05:05 | US_ITS ---
[place] [address] Patient Name: JACQUELINE GUY MRN: [id number] date: 1990 Sex: M Assigned Patient Location: ER Current Patient Location: ER Accession/Order Number: [id number] Exam Date: 12/05/2023 07:05 Report Date: 12/05/2023 08:10 At the request of: SHERRY DENG Procedure: US venous doppler LE BI EXAM: US venous doppler LE BI HISTORY: LLE pain, elevated d dimer COMPARISON: None. TECHNIQUE: Grayscale, color and Doppler FINDINGS: Right leg: Thrombus: None Flow: Normal Augmentation: Normal Compressibility: Normal Left leg: Thrombus: Echogenic thrombus identified in the mid femoral vein Flow: Decreased flow corresponding to thrombus Augmentation: Decreased augmentation corresponding to thrombus Compressibility: Noncompressibility corresponding to thrombus US/US venous doppler LE BI IMPRESSION: No deep or superficial vein thrombus in the right leg Nonocclusive deep vein thrombus left mid femoral vein Electronically authenticated by: STEPHANIE CAPELLAN Date: 12/05/2023 08:10
[2023-12-05] MEDS: MORPHINE SULFATE 4 MG/ML VIAL IM (05:08)
[2023-12-05] MEDS: ONDANSETRON 4 MG RAPDIS TABLET SL (05:08)
[2023-12-05 07:59] VITALS: BP 161/95; PULSE 73; O2SAT 100
[2023-12-05] MEDS: RIVAROXABAN 10 MG TABLET 15 MG PO (09:01)
[2023-12-05 09:05] VITALS: BP 173/117; PULSE 101; O2SAT 96
== END 2023-12-05 09:33 | disposition home or self-care (01) ==
PROVIDERS: Emergency Medicine; Emergency Provider Student in an Organized Health Care Education/Training Program
DX: I82.412 Acute embolism and thrombosis of left femoral vein (principal); E11.9 Type 2 diabetes mellitus without complications; I10 Essential (primary) hypertension; E66.01 Morbid (severe) obesity due to excess calories; R79.89 Other specified abnormal findings of blood chemistry; M19.072 Primary osteoarthritis, left ankle and foot; Z68.43 Body mass index [BMI] 50.0-59.9, adult
CPT/HCPCS: 36415; 73630; 80053; 85025; 85378; 85610; 93970; 96372; 99284; J1885; J2270; Q0162

== ENCOUNTER 2023-12-26 09:27 | Emergency (ER) | payer SELFPAY ==
--- NOTE | 2023-12-26 09:41 | PC.NURSE ---
Patient called from car to have us come out to parking lot due to the inability to use his leg. Research Editor checked patient in and on the way to his room he asked to use the bathroom. patient was told to use call light when done and was checked on while he is in there. He has been in the bathroom an extended period of time. Will take him to his room to be triaged when he is ready.
[2023-12-26 09:48] VITALS: BP 154/114; PULSE 99; TEMP 36.8; O2SAT 97; BMI 51.1
--- NOTE | 2023-12-26 10:05 | PC.NURSE ---
pt helped from vehicle into wheelchair -- pt went straight to bathroom for 20 mins before being able to triage patient in room. pt is c/o L leg weakness and pain that shoots into his L groin. Pt walked to wheelchair. h/o non-occlusive femoral DVT but denies getting any further tx or follow up for that d/t lack of insurance. pulses adequate and leg pink warm and dry
--- NOTE | 2023-12-26 10:08 | US_ITS ---
The [place] [id number] Patient Name: JACQUELINE GUY MRN: [id number] date: 1990 Sex: M Assigned Patient Location: ER Current Patient Location: ER Accession/Order Number: [id number] Exam Date: 12/26/2023 10:09 Report Date: 12/26/2023 10:49 At the request of: ESTEPHANIA LOCK Procedure: US venous doppler LE LT CLINICAL DATA: Limited mobility. Morbidly obese. PROCEDURE: Left lower extremity venous duplex ultrasound TECHNIQUE: [place]-scale, color flow, and waveform spectral analysis was performed of the left lower extremity. FINDINGS: The left common femoral, profunda femoral, femoral, and popliteal veins were compressible. The saphenous vein was compressible. No venous thrombosis was seen. The veins fill with color Doppler. Augmentation was normal. US/US venous doppler LE LT IMPRESSION: 1. No acute lower extremity deep venous thrombosis. 2. No superficial venous thrombosis. Electronically authenticated by: Ravin STEWART Date: 12/26/2023 10:49
[2023-12-26 10:25] LABS: Basophils Absolute Auto 0.1 10^3/uL (0.0-0.1); Basophils Percent Auto 0.7 % (0.2-2.0); Eosinophils Absolute Auto 0.1 10^3/uL (0.0-0.7); Eosinophils Percent Auto 1.1 % (0.9-7.0); Hematocrit 44.9 % (42.0-54.0); Hemoglobin 14.7 g/dL (14.0-18.0); Immature Granulocytes Abs Auto 0.06 10^3/uL (0.00-0.03); Immature Granulocytes Pct Auto 0.7 % (0.0-0.5); Lymphocytes Absolute Auto 2.4 10^3/uL (1.2-3.8); Lymphocytes Percent Auto 27.3 % (20.5-60.0); Mean Corpuscular HGB Conc 32.7 g/dL (29.9-35.2); Mean Corpuscular Hemoglobin 29.2 pg (25.9-34.0); Mean Corpuscular Volume 89.1 fL (80.0-94.0); Monocytes Absolute Auto 0.9 10^3/uL (0.3-0.8); Monocytes Percent Auto 10.1 % (1.7-12.0); Neutrophils Absolute Auto 5.3 10^3/uL (1.4-6.5); Neutrophils Percent Auto 60.1 % (43.0-75.0); Platelet Count 323 10^3/uL (150-450); Red Blood Count 5.04 10^6/uL (4.70-6.10); Red Cell Distribution Width 11.9 % (11.0-15.0); White Blood Count 8.7 10^3/uL (4.0-11.0)
--- NOTE | 2023-12-26 10:28 | ED.GENADUL1 ---
HPI HPI - General Adult General Chief complaint: Extremity Problem, Nontraumatic Stated complaint: LOWER LEFT EXTREMITY PAIN/NO STRENGTH Time Seen by Provider: 12/26/23 09:31 History of Present Illness HPI narrative: 33-year-old male to the emergency department with chief complaint of pain in his left leg making it difficult for him to move. 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 He is on Xarelto for this. He reports he has had some increasing pain across his anterior thigh and into his groin. He reports the pain is worse when he moves his leg. He denies any weakness, numbness, tingling. He reports it makes it difficult for him to move about. He reports that he could not follow-up with vascular surgery as recommended to him or his PCP due to financial constraints.He denies any chest pain or shortness of breath. He denies any fever, sweats, chills. No abdominal pain, nausea, vomiting, diarrhea. He denies any redness, warmth, swelling to the area. Related Data Home Medications ?Medication ?Instructions ?Recorded ?Confirmed losartan 100 mg tablet 100 mg PO QDAY 02/13/23 03/02/23 tamsulosin 0.4 mg capsule (Flomax) 0.4 mg PO DAILY 03/02/23 03/02/23 Previous Rx's ?Medication ?Instructions ?Recorded ciprofloxacin HCl 500 mg tablet 500 mg PO Q12H 7 days #14 tabs 02/15/23 metformin 500 mg tablet 500 mg PO BID #60 tabs 02/15/23 oxybutynin chloride 5 mg tablet 5 mg PO TID PRN stent pain, 03/02/23 bladder spasms #30 tabs sulfamethoxazole 800 1 tab PO BID Start morning of 03/02/23 mg-trimethoprim 160 mg tablet stent removal next week #2 tabs (Bactrim DS) oxycodone-acetaminophen 5 mg-325 1 tab PO Q6H PRN pain 3 days #12 12/05/23 mg tablet (Percocet) tabs rivaroxaban 15 mg (42)-20 mg (9) See Rx Instructions PO .COMPLEX 12/05/23 tablets in a starter pack (Xarelto #51 ea DVT-PE Treatment 30-Day Starter) cyclobenzaprine 10 mg tablet 10 mg PO BID PRN muscle spasm #10 12/26/23 tabs Allergies Allergy/AdvReac Type Severity Reaction Status Date / Time No Known Drug Allergies Allergy Verified 02/14/23 01:00 Opioid HPI Opioid Management Most Recent Opioid Data: Last Pain Scale 5 12/05/23 04:50 Review of Systems ROS Status of ROS 10 or more systems reviewed and unremarkable except as noted in history and below [facility] Medical History (Updated 12/26/23 @ 11:58 by Margarito Elizabeth MD) Diabetes ?E11.9 - Type 2 diabetes mellitus without complications (ICD-10) Prediabetes ?R73.03 - Prediabetes (ICD-10) Surgical History (Updated 02/25/23 @ 13:31 by Racheal Kilpatrick NP) H/O cystoscopy (02/14/23) ?Z98.890 - Other specified postprocedural states (ICD-10) Family History (Updated 02/25/23 @ 14:34 by Racheal Kilpatrick NP) Other Family history of diabetes mellitus Family history of hypertension Family history of myocardial infarction Social History (Updated 02/25/23 @ 14:32 by Racheal Kilpatrick NP) Within the past year, how often did you have a drink containing alcohol: monthly or less Smoking status: Never smoker Previous occupational history: [email or web address] Highest level of school completed/degree received: high school graduate Exam Narrative Exam Narrative: VITALS: I have reviewed the triage vital signs. GENERAL: Morbidly obese adult male in no distress NEURO: Alert and oriented. Moves all extremities. Face is symmetric and expressive. 5/5 plantarflexion/dorsiflexion, knee flexion/extension, hip flexion/ extension bilaterally. EYES: PERRL. No scleral icterus or conjunctival injection. No discharge. HENT: Normocephalic, atraumatic. Hearing is grossly intact. Nares grossly patent and without discharge. Mucous membranes moist. NECK: No JVD. Patient moves neck without restriction. CARDIO: Rhythm regular. Normal rate. No murmur, rub, or gallop. Pulses equal bilaterally in the upper and lower extremity. No lower extremity edema. PULM: Lungs clear to auscultation in all matos. No wheezes, rales, or rhonchi. No conversational dyspnea. No splinting, stridor, or accessory muscle use. GI/: Abdomen is soft and non-tender. Normoactive bowel sounds. EXTREMITIES: Symmetric muscle bulk. No joint swelling. No clubbing, cyanosis, or deformity. No redness, warmth, swelling, discharge, crepitus to the extremities bilaterally. No groin wound or rash. SKIN: Warm and dry. Normal turgor. No rash or lesions appreciated. PSYCH: Mood, affect, and interaction is appropriate to the setting. Constitutional Vital Signs, click to edit/add: Last Vital Signs Temp 98.2 F 12/26/23 09:48 Pulse 99 H 12/26/23 09:48 Resp 18 12/26/23 09:48 BP 154/114 H 12/26/23 09:48 Pulse Ox 97 12/26/23 09:48 O2 Del Method Room Air 12/26/23 09:48 Course Vital Signs Vital signs: Vital Signs Temperature 98.2 F 12/26/23 09:48 Pulse Rate 99 H 12/26/23 09:48 Respiratory Rate 18 12/26/23 09:48 Blood Pressure 154/114 H 12/26/23 09:48 Pulse Oximetry 97 12/26/23 09:48 Oxygen Delivery Method Room Air 12/26/23 09:48 Temperature 98.2 F 12/26/23 09:48 Pulse Rate 99 H 12/26/23 09:48 Respiratory Rate 18 12/26/23 09:48 Blood Pressure 154/114 H 12/26/23 09:48 Pulse Oximetry 97 12/26/23 09:48 Oxygen Delivery Method Room Air 12/26/23 09:48 Medical Decision Making [facility] Narrative Medical decision making narrative: 33-year-old male to the emergency department chief complaint of left-sided leg pain making it difficult for him to ambulate. Vital stable, the patient is afebrile. The left lower extremity is neurovascularly intact. There is no evidence of an acute infectious process. His muscular strength appears to be intact. He appears to be limited in his movement due to pain. Basic labs, repeat duplex will be performed. Patient agrees with this plan. CBC and chemistry without any major abnormalities. Repeat ultrasound shows resolution of this clot. X-ray of the hip/pelvis without any acute findings. Discussed findings with the patient. He believes he probably just pulled a muscle. Reports this happens all the time. Will place him on muscle relaxer. Return precautions were discussed. PCP follow-up. All questions were answered. The patient was discharged home. Medical Records Medical records reviewed: Yes I reviewed the patient's medical records Lab Data Lab results reviewed: Yes I reviewed the patient's lab results Labs: Lab Results 12/26/23 Range/Units 10:18 WBC 8.7 (4.0-11.0) 10^3/uL RBC 5.04 (4.70-6.10) 10^6/uL Hgb 14.7 (14.0-18.0) g/dL Hct 44.9 (42.0-54.0) % MCV 89.1 (80.0-94.0) fL MCH 29.2 (25.9-34.0) pg MCHC 32.7 (29.9-35.2) g/dL RDW 11.9 (11.0-15.0) % Plt Count 323 (150-450) 10^3/uL MPV 10.0 (9.5-13.5) fL Neut % (Auto) 60.1 (43.0-75.0) % Lymph % (Auto) 27.3 (20.5-60.0) % [place] % (Auto) 10.1 (1.7-12.0) % Eos % (Auto) 1.1 (0.9-7.0) % Baso % (Auto) 0.7 (0.2-2.0) % Neut # (Auto) 5.3 (1.4-6.5) 10^3/uL Lymph # (Auto) 2.4 (1.2-3.8) 10^3/uL [place] # (Auto) 0.9 H (0.3-0.8) 10^3/uL Eos # (Auto) 0.1 (0.0-0.7) 10^3/uL Baso # (Auto) 0.1 (0.0-0.1) 10^3/uL Abs Immat Gran (auto) 0.06 H (0.00-0.03) 10^3/uL Imm/Tot Granulo (auto) 0.7 H (0.0-0.5) % PT 13.0 H (9.0-11.6) sec INR 1.25 Sodium 134 L (136-145) mmol/L Potassium 4.1 (3.5-5.1) mmol/L Chloride 97 L (98-107) mmol/L Carbon Dioxide 23.9 (21.0-32.0) mmol/L Anion Gap 17.2 BUN 9.0 (7.0-18.0) mg/dL Creatinine 0.93 (0.70-1.30) mg/dL Est GFR ( Amer) >60 (>=60) Est GFR (Non-Af Amer) >60 (>=60) BUN/Creatinine Ratio 9.7 Glucose 139 H (74-106) mg/dL Calcium 9.2 (8.5-10.1) mg/dL Imaging Data leg imaging: Radiologist's impression: ITS Impressions Venous Doppler Study 12/26/23 10:08 IMPRESSION: 1. No acute lower extremity deep venous thrombosis. 2. No superficial venous thrombosis. Electronically authenticated by: Ravin STEWART Date: 12/26/2023 10:49 Hip/Pelvis X-Ray 12/26/23 10:55 IMPRESSION: 1. No acute bone abnormality or significant degenerative changes. Electronically authenticated by: MARTHA SMITH Date: 12/26/2023 11:25 Discharge Plan Discharge Stand Alone Forms: Portal Instructions Chief Complaint: Extremity Problem, Nontraumatic Clinical Impression: Acute leg pain Patient Disposition: Home, Self-Care Time of Disposition Decision: 11:58 Condition: Good Mode of Transportation: Private Vehicle Prescriptions / Home Meds: New cyclobenzaprine 10 mg tablet 10 mg PO BID PRN (Reason: muscle spasm) Qty: 10 0RF No Action Xarelto DVT-PE Treat 30d Start 15 mg (42)- 20 mg (9) tablets,dose pack See Rx Instructions .ROUTE .COMPLEX Qty: 51 0RF Rx Instructions: take one-15 mg tablet twice daily for 21 days, then one-20 mg tablet once daily; must take with meal/food oxycodone-acetaminophen [Percocet] 5-325 mg tablet 1 tab PO Q6H PRN (Reason: pain) 3 Days Qty: 12 0RF losartan 100 mg tablet 100 mg PO QDAY metformin 500 mg tablet 500 mg PO BID Qty: 60 0RF ciprofloxacin HCl 500 mg tablet 500 mg PO Q12H 7 Days Qty: 14 0RF tamsulosin [Flomax] 0.4 mg capsule 0.4 mg PO DAILY sulfamethoxazole-trimethoprim [Bactrim DS] 800-160 mg tablet 1 tab PO BID Qty: 2 0RF oxybutynin chloride 5 mg tablet 5 mg PO TID PRN (Reason: stent pain, bladder spasms) Qty: 30 0RF Print Language: Swiss Instructions: Leg Pain (ED) Additional Instructions: Call the office of your primary care doctor to arrange for follow-up within the above-stated timeframe. Your ED visit was focused on your acute issue and does not replace primary care. You should review your labs, imaging, and diagnoses from this ED visit with your primary care physician. There may be non-emergent/ incidental findings that need further evaluation. You should review your vital signs including blood pressure with your PCP. If you were prescribed medications you should discuss possible side-effects and drug interactions with your pharmacist. Call 911 or go to the nearest Emergency Department if you develop any new or worsening symptoms. Referrals: Physician,Non-Staff, [Primary Care Provider] - 1 week Shaikh Junior MD [Physician] - 1 week
[2023-12-26 10:39] LABS: Sodium 134 mmol/L (136-145)
[2023-12-26 10:40] LABS: Anion Gap 17.2; BUN Creatinine Ratio 9.7; Calcium 9.2 mg/dL (8.5-10.1); Carbon Dioxide 23.9 mmol/L (21.0-32.0); Chloride 97 mmol/L (98-107); Estimated GFR (African America >60 (>=60); Estimated GFR (Non-African Ame >60 (>=60); Glucose 139 mg/dL (74-106); Potassium 4.1 mmol/L (3.5-5.1)
[2023-12-26 10:45] LABS: INR 1.25
--- NOTE | 2023-12-26 10:55 | XR_ITS ---
The [address] [address] Patient Name: JACQUELINE GUY MRN: [id number] date: 1990 Sex: M Assigned Patient Location: ER Current Patient Location: ER Accession/Order Number: [id number] Exam Date: 12/26/2023 11:05 Report Date: 12/26/2023 11:25 At the request of: ESTEPHANIA LOCK Procedure: XR hip LT 2V w/ pelvis PROCEDURE: XR hip LT 2V w/ pelvis HISTORY: pain COMPARISON: None. FINDINGS: BONES:No fracture, acute abnormality, or significant arthropathy. SOFT TISSUES:No visible soft tissue swelling. EFFUSION:None visible. OTHER: Negative. XR/XR hip LT 2V w/ pelvis IMPRESSION: 1. No acute bone abnormality or significant degenerative changes. Electronically authenticated by: MARTHA SMITH Date: 12/26/2023 11:25
[2023-12-26 12:38] VITALS: BP 138/82
== END 2023-12-26 12:40 | disposition home or self-care (01) ==
PROVIDERS: Emergency Provider Student in an Organized Health Care Education/Training Program
DX: M79.605 Pain in left leg (principal); Z79.01 Long term (current) use of anticoagulants; Z86.718 Personal history of other venous thrombosis and embolism
CPT/HCPCS: 36415; 73502; 80048; 85025; 85610; 93971; 99285

== ENCOUNTER 2024-02-16 09:10 | Emergency (ER) | payer SELFPAY ==
[2024-02-16] VITALS (9 sets, daily range): BP systolic 133–155; BP diastolic 96–102; PULSE 74–89; O2SAT 95–97; BMI 50.8
--- NOTE | 2024-02-16 09:27 | ECG_ITS ---
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
--- NOTE | 2024-02-16 09:28 | XR_ITS ---
The [address] [address] Patient Name: JACQUELINE GUY MRN: [id number] date: 1990 Sex: M Assigned Patient Location: ER Current Patient Location: ER Accession/Order Number: [id number] Exam Date: 02/16/2024 09:45 Report Date: 02/16/2024 10:17 At the request of: NAHID LIM Procedure: XR chest 1V EXAMINATION: XR chest 1V HISTORY: Pain, left lower rib area COMPARISON: No relevant comparison available. FINDINGS: LUNGS: No significant pulmonary parenchymal abnormalities. VASCULATURE: No increased pulmonary vasculature. PLEURA: No pneumothorax, effusion, or pleural thickening. CARDIAC: No cardiomegaly or cardiac silhouette abnormality. MEDIASTINUM: No visible mass or adenopathy. BONES: No fracture or visible bone lesion. OTHER: Negative. XR/XR chest 1V IMPRESSION: 1. No appreciable acute cardiac pulmonary process. 2. Evaluation is slightly limited by AP portable technique and patient body habitus. Electronically authenticated by: MARTHA SMITH Date: 02/16/2024 10:17
--- NOTE | 2024-02-16 09:28 | ED.GENADUL1 ---
HPI HPI - General Adult General Chief complaint: Abdominal Pain Stated complaint: ABDOMINAL PAIN Time Seen by Provider: 02/16/24 09:22 Source: patient Mode of arrival: walk-in Limitations: no limitations History of Present Illness HPI narrative: 34-year-old male presents for pain to his left lower rib area. He has had it for few days but did not do anything to hurt himself. If he lays still it does not hurt but if he moves or stretches it hurts. He has been off of his antihypertensive and oral hypoglycemic for the entire year. No constipation or diarrhea or blood in his stools. No fever or cough or shortness of breath. Related Data Home Medications ?Medication ?Instructions ?Recorded ?Confirmed No Known Home Medications 02/16/24 02/16/24 Allergies Allergy/AdvReac Type Severity Reaction Status Date / Time No Known Drug Allergies Allergy Verified 02/14/23 01:00 Opioid HPI Opioid Management Most Recent Opioid Data: Last Pain Scale 7 02/16/24 09:27 Review of Systems ROS Narrative A ten point review of systems is negative except as noted above. PFSH PFSH Medical History (Updated 02/16/24 @ 10:26 by Jose Raphael MD) Diabetes ?E11.9 - Type 2 diabetes mellitus without complications (ICD-10) Prediabetes ?R73.03 - Prediabetes (ICD-10) Surgical History (Updated 02/25/23 @ 13:31 by Racheal Kilpatrick NP) H/O cystoscopy (02/14/23) ?Z98.890 - Other specified postprocedural states (ICD-10) Family History (Updated 02/25/23 @ 14:34 by Racheal Kilpatrick NP) Other Family history of diabetes mellitus Family history of hypertension Family history of myocardial infarction Social History (Updated 02/25/23 @ 14:32 by Racheal Kilpatrick NP) Within the past year, how often did you have a drink containing alcohol: monthly or less Smoking status: Never smoker Previous occupational history: [employer] Highest level of school completed/degree received: high school graduate Little interest or pleasure in doing things: not at all Feeling down, depressed, or hopeless: not at all Exam Narrative Exam Narrative: Nurses note and vital signs reviewed and patient is not hypoxic. General: The patient appears well and in no apparent distress. Patient is resting comfortably on cart. Skin: Warm, dry, no pallor noted. There is no rash noted. Head: Normocephalic, atraumatic Eye: Normal conjunctiva, no drainage Ears, Nose, Mouth, and Throat: oral mucosa is moist. Nares patent. Cardiovascular: Regular Rate and Rhythm Respiratory: Patient is in no distress, no accessory muscle use, lungs are clear to auscultation, no wheezing, rales or rhonchi. He has some tenderness to the left lower rib margin and there is no bruise or rash in that area. The rest of his abdomen is nontender. Back: non-tender, no CVA tenderness bilaterally to percussion. GI: Obese soft and nontender Musculoskeletal: The patient has no evidence of calf tenderness, no pitting edema, symmetrical pulses noted bilaterally Neurological: A&O, normal speech Psychiatric: Cooperative Constitutional Vital Signs, click to edit/add: Last Vital Signs Pulse 74 02/16/24 09:15 Resp 18 02/16/24 09:15 BP 148/99 H 02/16/24 09:15 Pulse Ox 97 02/16/24 09:15 O2 Del Method Room Air 02/16/24 09:15 Course Vital Signs Vital signs: Vital Signs Pulse Rate 74 02/16/24 09:15 Respiratory Rate 18 02/16/24 09:15 Blood Pressure 148/99 H 02/16/24 09:15 Pulse Oximetry 97 02/16/24 09:15 Oxygen Delivery Method Room Air 02/16/24 09:15 Pulse Rate 74 02/16/24 09:15 Respiratory Rate 18 02/16/24 09:15 Blood Pressure 148/99 H 02/16/24 09:15 Pulse Oximetry 97 02/16/24 09:15 Oxygen Delivery Method Room Air 02/16/24 09:15 Medical Decision Making MDM Narrative Medical decision making narrative: His workup is negative. He has been off of his medications for about 9 months because he does not have health insurance. We are going to contact social services director to see if they could be of some assistance for him. He is also given a list of family doctors. D-dimer is negative and x-ray is negative. His pain is reproducible and my clinical impression is that this is in the wall of his chest. Treatment diagnosis and follow-up were discussed with the patient. Differential Diagnosis Differential Diagnosis: Pneumothorax, PE, muscle strain, pneumonia Lab Data Lab results reviewed: Yes I reviewed the patient's lab results Labs: Lab Results 02/16/24 02/16/24 Range/Units 09:23 09:26 WBC 9.2 (4.0-11.0) 10^3/uL RBC 5.06 (4.70-6.10) 10^6/uL Hgb 14.6 (14.0-18.0) g/dL Hct 44.9 (42.0-54.0) % MCV 88.7 (80.0-94.0) fL MCH 28.9 (25.9-34.0) pg MCHC 32.5 (29.9-35.2) g/dL RDW 12.8 (11.0-15.0) % Plt Count 280 (150-450) 10^3/uL MPV 10.3 (9.5-13.5) fL Neut % (Auto) 54.4 (43.0-75.0) % Lymph % (Auto) 30.1 (20.5-60.0) % [place] % (Auto) 11.1 (1.7-12.0) % Eos % (Auto) 2.2 (0.9-7.0) % Baso % (Auto) 0.7 (0.2-2.0) % Neut # (Auto) 5.0 (1.4-6.5) 10^3/uL Lymph # (Auto) 2.8 (1.2-3.8) 10^3/uL [place] # (Auto) 1.0 H (0.3-0.8) 10^3/uL Eos # (Auto) 0.2 (0.0-0.7) 10^3/uL Baso # (Auto) 0.1 (0.0-0.1) 10^3/uL Abs Immat Gran (auto) 0.14 H (0.00-0.03) 10^3/uL Imm/Tot Granulo (auto) 1.5 H (0.0-0.5) % D-Dimer 0.41 (<=0.59) mg/L FEU Sodium 135 L (136-145) mmol/L Potassium 4.0 (3.5-5.1) mmol/L Chloride 99 (98-107) mmol/L Carbon Dioxide 27.8 (21.0-32.0) mmol/L Anion Gap 12.2 BUN 8.0 (7.0-18.0) mg/dL Creatinine 0.89 (0.70-1.30) mg/dL Est GFR ( Amer) >60 (>=60) Est GFR (Non-Af Amer) >60 (>=60) BUN/Creatinine Ratio 9.0 Glucose 264 H (74-106) mg/dL Calcium 9.4 (8.5-10.1) mg/dL Urine Color Lt. yellow (YELLOW) Urine Clarity Clear (CLEAR) Urine pH 6.0 (5.0-9.0) Ur Specific [place] 1.025 (1.005-1.025) Urine Protein Negative (NEG/TRACE) mg/dL Urine Glucose (UA) 500 A (NEGATIVE) mg/dL Urine Ketones Negative (NEGATIVE) mg/dL Urine Occult Blood Negative (NEGATIVE) Urine Nitrite Negative (NEGATIVE) Urine Bilirubin Negative (NEGATIVE) Urine Urobilinogen 0.2 (0.2-1.0) EU/dL Ur Leukocyte Esterase Small A (NEGATIVE) Urine RBC 2-5 A (0-2) #/HPF Urine WBC 5-10 A (NONE SEEN) #/HPF Ur Squamous Epith Cells Few A (NONE/RARE) #/LPF Urine Crystals None seen (None Seen) #/HPF Urine Bacteria Trace A (NONE SEEN) #/HPF Urine Casts None seen (NONE SEEN) #/LPF Urine Mucus None seen (NONE SEEN) Ur Culture Indicated? Yes Imaging Data Chest x-ray: Radiologist's impression: ITS Impressions Chest X-Ray 02/16/24 09:28 IMPRESSION: 1. No appreciable acute cardiac pulmonary process. 2. Evaluation is slightly limited by AP portable technique and patient body habitus. Electronically authenticated by: MARTHA SMITH Date: 02/16/2024 10:17 ECG Data Attestation: I personally reviewed and interpreted this ECG as follows: (EKG on my interpretation shows normal sinus rhythm without acute change and a rate of 77) Discharge Plan Discharge Chief Complaint: Abdominal Pain Clinical Impression: Chest wall pain Patient Disposition: Home, Self-Care Time of Disposition Decision: 10:25 Condition: Good Mode of Transportation: Private Vehicle Prescriptions / Home Meds: No Action No Known Home Medications Print Language: Pashto Instructions: Chest Wall Pain (ED) Referrals: Physician,Non-Staff, MD [Primary Care Provider] - 1 week
--- OUTSIDE RECORDS SUMMARY | 2024-02-16 09:35 | XMS_ITS | CCD ---
Author Organization [facility] Care Team Providers Care Medical Physics Researcher Name Role Phone Marcio Caro Attending Unavailable Marcio Caro Admitting Unavailable NON STAFF Primary Care Unavailable REQUEST, NONE LISTED Primary Care Unavaila ble DIAB ., CYNTHIA Admitting Unavailable DIAB ., CYNTHIA Attending Unavailable KEKE ., ANA PAULA JAMES Consulting Unavailabl e KENJI, ALTAGRACIA Consulting Unavailable INNA ., SEKOU Admitting Unavailable INNA ., SEKOU Attending Unavailable JONO ., JESSICA Consulting Unavailable STEPHANIE MOE Consulting Unavailable SHAMMO, CHELSEY MÓNICA Primary Care Physician WILLIAM MANSFIELD Attending Unavailable Lue, Madeline M. Attending Unavailable SHAMMO, CHELSEY Primary Care Unavailable Lue, Madeline M. Attending Unavailable Lue, Madeline M. Referring Unavailable Lue, Madeline M. Attending Unavailable SHAMMO, CHELSEY Primary Care Unavailable Lue, Madeline M. Attending Unavailable SHAMMO, CHELSEY Primary Care Unavailable Lue, Madeline M. Admitting Unavailable Lue, Madeline M. Referring Unavailable SHAMMO, CHELSEY Primary Care Unavailable Lue, Madeline M. Attending Unavailable Lue, Madeline M. Referring Unavailable JOYCE JOHNSON Attending UnavailJOYCE Mares Referring UnavailJOYCE Mares Attending Unavaildaniel e Medications Current Medications Medication Drug Class(es) Dates Sig (Normalized) Sig (Original) losartan potassium 100 mg oral tablet (3 sources) Angiotensin 2 Receptor Kaylene Start: 02-23-2023 losartan 100 mg Tab 100 mg = 1 tab(s), Refills(s) 0 Start Date: 02/23/23 Status: Ordered metFORMIN hydrochloride 500 mg oral tablet (3 sources) Biguanide Start: 02-23-2023 metformin 500 mg Tab Refills(s) 0 Start Date: 02/23/23 Status: Ordered tamsulosin hydrochloride 0.4 mg oral capsule (1 source) alpha-Adrenergic Kaylene Start: 02-23-2023 tamsulosin 0.4 mg Cap 0.4 mg = 1 cap(s), Refills(s) 0 Start Date: 02/23/23 Status: Ordered Problems Active Problems Problem Classification Problem Date Documented Date Episodic/Chronic Diabetes mellitus without complication (1 source) Type 2 diabetes mellitus without complications; Translations: [TYPE 2 DM WITHOUT COMPLICATIONS] Onset: 10-18-2022 Chronic Osteoarthritis (1 source) Primary osteoarthritis, left ankle and foot; Translations: [Primary osteoarthritis, left ankle and foot] Onset: 03-29-2023 Chronic Other aftercare (1 source) 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; Translations: [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 ORAL HYPOGLYCEMIC DX] Onset: 10-18-2022 Episodic Other connective tissue disease (4 sources) Pain in left leg; Translations: [PAIN IN LEFT LEG] Onset: 10-16-2022 Episodic Other diseases of kidney and ureters (1 source) Urinary tract obstruction; Translations: [Hydronephrosis with renal and ureteral calculous obstruction] Onset: 03-07-2023 Episodic Other injuries and conditions due to external causes (1 source) Foreign body in bladder; Translations: [Foreign body in bladder, initial encounter] Onset: 03-07-2023 Episodic Unclassified (1 source) Pain in left knee; Translations: [Pain in left knee] Onset: 08-22-2022 Unclassified (3 sources) COUGH, UNSPECIFIED; Translations: [COUGH, UNSPECIFIED] Onset: 07-12-2022 Unclassified (1 source) CONTACT W/AND (SUSP) EXPOS COVID-19; Translations: [CONTACT W/AND (SUSP) EXPOS COVID-19] Onset: 07-12-2022 Unclassified (3 sources) Obstructive hydronephrosis 02-18-2023 Urinary tract infections (3 sources) Urinary tract infectious disease 02-18-2023 Episodic Past or Other Problems Problem Classification Problem Date Documented Da te Episodic/Chronic Other upper respiratory infections (1 source) Acute upper respiratory infection, unspecified; Translations: [ACUTE UP RESPIRATORY INFECTION UNS] Onset: 07-12-2022 Episodic Spondylosis; intervertebral disc disorders; other back problems (2 sources) Backache; Translations: [Back Pain] Onset: 12-11-2022 Episodic Unclassified (1 source) COUGH, UNSPECIFIED; Translations: [COUGH, UNSPECIFIED] Onset: 07-10-2022 Results Test Name Value Interpretation Reference Range Facility XR ANKLE LEFT (MIN 3 VIEWS)o n 03-29-2023 XR ANKLE LEFT (MIN 3 VIEWS) EXAM: XR ANKLE LEFT (MIN 3 VIEWS) HISTORY: left ankle pain COMPARISON: None. IMPRESSION: FINDINGS/IMPRESSION: 1. Moderate moderate diffuse degenerative change in the talonavicular and subtalar joint. 2. Mild degenerative change ankle mortise. 3. Diffuse soft tissue swelling. 4. No fracture, dislocation or erosion. Interpreted by: Suman Ring Jr., MD Signed by: Suman Ring Jr., MD 03/29/[address] [facility] IntraOperative Documentson IntraOperative Documents [id number] 5#1.00TIFF Normal [facility] Lab Reportson 03-11-2023 Lab Reports [id number] #1.00TIFF Normal [facility] Operative Reporton Operative Report [id number] #1.00TIFF Normal [facility] Consent for Procedure/Surger yon 03-07-2023 Consent for Procedure/Surgery [id number] #1.00TIFF Normal [facility] Consent for Treatmenton 02-20 Consent for Treatment [id number] #1.00TIFF Normal [facility] Inpatient Patient Summaryon 03-07-2023 Inpatient Patient Summary [place] [id number] Clinical Summary Person Information Name: ROGER LITTLE Age: 33 Years : 1990 Sex: Male PCP: CHELSEY PLATT CNP Marital Status: Single Race: White Ethnicity: Non- or Language: Georgian Visit Id: Visit Reason: URETERAL STONE WITH HYDRONEPHROSIS Speciality: Acuity: Enc Type: Outpatient Med Service: Surgery Arrival: 03/07/2023 07:08:53 Discharge: Dispo Type: Address: [address] [place] [address] [place] [id number] Provider Notes: Diagnosis: Foreign body in bladder; Ureteral stone with hydronephrosis Problems Active UTI (urinary tract infection) Ureteral stone with hydronephrosis Smoking Status: Functional Status: Sensory Deficits: History of Falls: Mobility Assistance Prior to Admission: ADLs: Current Level of Assistance for Self-Care/Mobility: Cognitive Status: Allergies No Known Allergies Laboratory or Other Results This Visit (last charted value for your 03/07/2023 visit) No Laboratory or Other Results This Visit Measurements: Height: 192 cm Weight: Blood Pressure: Not Valued / Not Valued BMI: Procedures No Procedures Documented Immunizations No Immunizations Documented This Visit Final Med List: losartan (losartan 100 mg Tab) 1 Tablets. metformin (metformin 500 mg Tab) Care Team Members: Attending Physician: Madeline Garcia MD Consulting Physician: Referring Physician: Madeline Garcia MD Follow up: With: Address: When: Madeline Garcia [address] [place] [phone] Business (1) [address], [place] [address], [facility] [address] [place] [phone] [phone] Business (1) Comments: Office to schedule follow up in 6 weeks with renal US and metabolic stone workup Patient Education Information: EU - Cystoscopy with Stent Removal Discharge Instructions (CUSTOM) [facility] Main OR Intraoperative Recor don 03-07-2023 Main OR Intraoperative Record IntraOp Document Type FTURO Summary Primary Physician: Madeline Garcia MD Finalized Date/Time: 03/07/23 11:17:31 Pt. Name: ROGER LITTLE/Sex: 1990 Male Med Rec #: [id number] Physician: Madeline Garcia MD Financial #: [id number] Pt. Type: O Room/Bed: / Admit/Disch: 03/07/23 07:08:53 - Institution: Case Times FTURO Entry 1 Patient Times In Room 03/07/23 07:55:00 Out Room 03/07/23 08:06:00 Procedure Times Start 03/07/23 07:57:00 Stop 03/07/23 08:01:00 Anesthesia Times Last Modified By: KAM Olivia RN, Ruthann 03/07/23 08:01:45 Case Attendance FTURO Entry 1 Entry 2 Entry 3 Case Attendee Madeline Garcia MD, Jessica D Stocker RN, Carolyne HUMPHREY Role Performed Surgeon - Primary Scrub - Primary Peoplesoft Consultant - Primary Time In 03/07/23 07:55:00 03/07/23 07:55:00 03/07/23 07:55:00 Time Out 03/07/23 08:06:00 03/07/23 08:06:00 03/07/23 08:06:00 Procedure CYSTOSCOPY LOCAL WITH CYSTOSCOPY LOCAL WITH CYSTOSCOPY LOCAL WITH STENT REMOVAL(Left) STENT REMOVAL(Left) STENT REMOVAL(Left) Comments roger votino orianting Last Modified By: Corwin FORBES, KAM, KAM Olivia RN, KAM Olivia RN, Ruthann 03/07/23 Carolyne 03/07/23 Carolyne 03/07/23 08:01:46 11:17:27 08:01:46 Surgical Procedures FTURO Entry 1 Procedure Description Procedure CYSTOSCOPY LOCAL WITH Modifiers Left STENT REMOVAL Surgeon Description CYSTO LEFT STENT REMOVAL Primary Procedure Yes Primary Surgeon Madeline Garcia MD Start 03/07/23 07:57:00 Stop 03/07/23 08:01:00 Anesthesia Type Local Surgical Service Urology Wound Class 2 - Clean-Contaminated Last Modified By: KAM Olivia RN, Ruthann 03/07/23 08:01:48 General Case Data FTURO Pre-Care Text: Classifies surgical wound, implements aseptic technique, initiates traffic control Entry 1 Case Information OR URO 1 FT Case Level None Wound Class 2 - Clean-Contaminated Specialty Urology Preop Diagnosis URETERAL STONE WITH Postop Same As Preop No HYDRONEPHROSIS, stent insertion Postop Diagnosis URETERAL STONE WITH Outcomes Met? Yes HYDRONEPHROSIS Last Modified By: KAM Olivia RN, Carolyne 03/07/23 07:41:28 Post-Care Text: The patient is free from signs and symptoms of infection EU IntraOp - FTURO Pre-Care Text: Implements protective measures prior to operative or invasive procedure, confirms identity before the operative or invasive procedure, verifies operative procedure, surgical site, and laterality Entry 1 EU Perioperative Protocols Procedure(s) CYSTOSCOPY LOCAL WITH Patient Identity Birthday, ID Band STENT REMOVAL(Left) Verified (select at Check, Patient least 2): Participation Consents / H and P HandP, Surgery/Procedure Operative Site N/A Verified Consent Marking Verified Surgical Site Yes Laterality Verified n/a Verified Procedure Verified Yes Correct Patient Yes Position Verified Availability Equipment, Medication Time Out Jose YAO, Robin Turpin, Verified (If Participants Corwin Wadsworth RN, Applicable) Carolyne HUMPHREY Time Out Complete 03/07/23 07:57:00 Allergies Reviewed? Yes Allergies Reviewed Self/Patient With Body Position Supine Prep Area penis Prep Agents Betadine Solution Skin. Condition Unable to Visualize Additional None Specimens Collected Vitals - EU Blood Pressure 132/82 Pulse 84 bpm Respirations 14 br/min SPO2 EBL 0 IandO - EU Total Intake 0 mL Total Output 0 mL Outcomes Met? Yes Last Modified By: KAM Olivia RN, Ruthann 03/07/23 08:01:35 Post-Care Text: The patient is free from signs and symptoms of injury caused by extraneous objects Sign Out FTURO Entry 1 Before Patient Leaves OR Nurse verbally Yes Nurse verbally n/a confirms with the confirms with the team the name of team that the procedure(s) instrument, sponge, recorded and needle counts are correct (or N/A) Nurse verbally n/a Nurse verbally n/a confirms with the confirms with the team how the team whether there specimen is labeled are any equipment (including patient problems to be name), if applicable addressed Sign Out Complete 03/07/23 08:03:00 Last Modified By: KAM Olivia RN, Ruthann 03/07/23 08:01:55 Case Comments Finalized By: KAM Olivia RN, Ruthann Document Signatures Signed By: KAM Olivia RN, Ruthann 03/07/23 08:01 KAM Olivia RN, Ruthann 03/07/23 11:17 Normal [facility] Main OR Preoperative Recordo n 03-07-2023 Main OR Preoperative Record Holding Area Document Type FTURO Summary Primary Physician: Madeline Garcia MD Finalized Date/Time: 03/07/23 08:44:06 Pt. Name: ROGER LITTLE /Sex: 1990 Male Med Rec #: [id number] Physician: Madeline Garcia MD Financial #: [id number] Pt. Type: O Room/Bed: / Admit/Disch: 03/07/23 07:08:53 - Institution: Case Times Holding FTURO Pre-Care Text: Verifies consent for planned procedure, identifies individual values and wishes concerning care, includes family members in perioperative teaching Secures patient's records' belongings, and valuables, maintains patient's dignity and privacy, and maintains patient confidentiality Entry 1 In Holding 03/07/23 07:25:00 Outcomes Met? Yes Last Modified By: Mya Sanchez RN 03/07/23 07:25:26 Post-Care Text: The patient participates in decisions affecting his or her perioperative plan of care The patient's right to privacy is maintained Surgery Checklist FTURO Entry 1 Patient Birthday, ID Band Procedure History and Physical, Identification: Check, Patient Verification: Surgical Consent, With Participation Patient NPO after Midnight: n/a Personal Items: Glasses Personal Items glasses Limitations: up ad chelsea Comment: Complaints of Pain: No Skin Integrity Dry, Warm, Unable to Visualize Vitals - EU Blood Pressure 132/82 Pulse 84 bpm Respirations 16 br/min SPO2 95 % Additional None RN Reviewed Yes Specimens Collected Last Modified By: Mya Sanchez RN 03/07/23 08:43:58 General Comments: temp 36.4C juli jose Finalized By: Mya Sanchez RN Document Signatures Signed By: Mya Sanchez RN 03/07/23 08:39 KAM Olivia RN, Ruthann 03/07/23 07:59 Mya Sanchez RN 03/07/23 08:44 Mya Sanchez RN 03/07/23 07:30 Mya Sanchez RN 03/07/23 07:37 Mya Sanchez RN 03/07/23 08:44 Normal [facility] Operative Reporton 3 Operative Report Patient: ROGER LITTLE Age: 33 years Sex: Male : 1990 Associated Diagnoses: None Author: Madeline Garcia MD Procedure Operative Information Details: Date/ Time: 03/07/2023 08:08:00. Pre-Op Dx: Foreign Body in Bladder - T19.1XXA. Post-Op Dx: Same. Anesthesia Type: Local. Procedure: Local Cystoscopy with Stent Removal. Complications: None. Risks/Benefits/Infor med Consent: Surgical risks, benefits, details of the procedure have been explained to the patient, Full informed consent has been obtained. Intraoperative Information Prepped: The patient was placed in supine position, The patient was prepped with the Betadine solution. Anesthesia: 2% Xylocaine Jelly per urethra. Procedure: Cystoscopy and Left Stent Removal, The flexible Cystoscope was passed in retrograde fashion into the bladder without difficulty, The bladder was viewed in entirety and found to be without tumors or stones, Mild inflammation was seen surrounding the orifice with the stent seen protruding from it, The stent was then grasped and removed in its entirety. Specimens Removed: None. Devices Implanted: None. Postoperative Information Discharge: The patient tolerated the procedure well and was subsequently discharged home, Follow up in 6 wks with metabolic stone workup and renal US. Normal [facility] Comment on above: Result Comment: Elec tronically Signed By: Madeline Garcia MD\.br\Date and Time Signed: 03/07/23 08:08 EDT Outpatient Surgery Discharge Instructionon 03-07-2023 Outpatient Surgery Discharge Instruction [place] [id number] Patient Discharge Instructions PERSON INFORMATION Name: ROGER LITTLE Date of : 1990 Current Date: 03/07/2023 08:05:05 PHYSICIANS Admitting Physician: Madeline Garcia MD Comment: Discharge Diagnosis: Foreign body in bladder; Ureteral stone with hydronephrosis ROGER LITTLE has been given the following list of follow-up instructions, prescriptions, and patient education materials: IF UNABLE TO CONTACT YOUR PHYSICIAN AND YOU FEEL IT IS AN EMERGENCY, GO TO THE NEAREST EMERGENCY ROOM OR CALL 911 Follow up: With: Address: When: Madeline Garcia [address] [place] [address] [place] [phone] Business (1) [address] [facility], [facility] [address] [place] [phone] [employer] (1) Comments: Office to schedule follow up in 6 weeks with renal US and metabolic stone workup Comment: PATIENT EDUCATION INFORMATION Instructions: Cystoscopy with Stent Removal ? Voiding after the procedure: there may be some pain, burning, urgency, frequency and blood tinged urine following the procedure. These symptoms usually resolve within 2-5 days. Drink the amount of fluid it takes to keep the urine pink to yellow or clear in color. Drinking enough water and fluids will help to ease any discomfort after your procedure. ? If you are having problems that seem out of the ordinary, please call. ? If unable to contact your physician and you feel it is an emergency, go to the nearest emergency room or call 911 ? Diet ? you may resume your normal diet. ? Activity ? you may resume your normal activities ? Call if you have a fever over 100 degrees. BROOKS Serna ADAM, have received the attached patient education materials/instructio ns and have verbalized understanding: May we do a follow up call? Yes No I was present when discharge instructions were given Patient Signature Date Clinican/Nurse Signature Date You may receive a survey from [employer] asking you to rate your care experience. Your feedback is important and will help us understand what we do well and how we can improve the quality of care we provide to you, your loved ones and our community. It?s an honor to serve you. Thank you for choosing [facility] Physician Orderon 03-07-2023 Physician Order [id number] #1.00TIFF [facility] Lab Reportson 03-04-2023 Lab Reports [id number] #1.00TIFF [facility] Insurance Correspondenceon 1 Insurance Correspondence [id number] 6#1.00TIFF [facility] Lab Reportson 03-02-2023 Lab Reports [id number] 1#1.00TIFF [facility] Lab Reportson 02-25-2023 Lab Reports [id number] #1.00TIFF [facility] Insurance Correspondenceon Insurance Correspondence [id number] 3#1.00CD:127 [facility] Ambulatory Visit Summaryon Ambulatory Visit Summary ROGER LITTLE :1990 Visit Date:02/23/2023 Ambulatory Visit Instructions Your Diagnosis Ureteral stone with hydronephrosis UTI (urinary tract infection) Tests Performed Urnls Dip Stick Auto w/o Microscopy POC 62509 Your Care Team Attending Physician - Jose YAO, Madeline Ho Primary Care Physician - CHELSEY PLATT CNP This Is Your Medications List Contact prescribing physician if questions or concerns losartan (losartan 100 mg Tab) metformin (metformin 500 mg Tab) tamsulosin (tamsulosin 0.4 mg Cap) Procedures Performed Cystoscopic insertion of ureteric stent (02/17/2023). Discharge Vitals Heart Rate (Peripheral) 84 Blood Pressure 132/82 Height 192 cm Height 76 in Weight 188 kg Weight 413.6 lb BMI 51 What to do next You Need to Schedule the Following Appointments Follow Up with Jose YAO, Madeline Ho, CHEY, URO When: Comments: Sched Ureteroscopy/LaserLi tho/Stent Exchange Where: Medications What How Much When Instructions Unchanged losartan (losartan 100 mg Tab) 1 Tablets Contact prescribing physician if questions or concerns Unchanged metformin (metformin 500 mg Tab) Contact prescribing physician if questions or concerns Unchanged tamsulosin (tamsulosin 0.4 mg Cap) 1 Capsules Contact prescribing physician if questions or concerns Test Results Urnls Dip Stick Auto w/o Microscopy POC 32873 (02/23/2023) Bilirubin Urine Dipstick - Negative Blood Urine Dipstick - 2+ Moderate Glucose Urine Dipstick - Negative Ketones Urine Dipstick - Negative Nitrite Urine Dipstick - Negative Protein Urine Dipstick - 1+ (30 mg/dl) Specific [place] Urine Dipstick - 1.020 Urine Appearance Urine Dipstick - Clear Urine Color Urine Dipstick - Yellow Urobilinogen Urine Dipstick - Normal 0.2-1 EU/dl pH Urine Dipstick - 5 Allergies No Known Allergies Problems Ongoing - Any problem that you are currently receiving treatment for. Ureteral stone with hydronephrosis UTI (urinary tract infection) Education Materials Dietary Guidelines to Help Prevent Kidney Stones Kidney stones are deposits of minerals and salts that form inside your kidneys. Your risk of developing kidney stones may be greater depending on your diet, your lifestyle, the medicines you take, and whether you have certain medical conditions. Most people can lower their chances of developing kidney stones by following the instructions below. Your dietitian may give you more specific instructions depending on your overall health and the type of kidney stones you tend to develop. What are tips for following this plan? Reading food labels ? Choose foods with no salt added or low-salt labels. Limit your salt (sodium) intake to less than 1,500 mg a day. ? Choose foods with calcium for each meal and snack. Try to eat about 300 mg of calcium at each meal. Foods that contain 200?500 mg of calcium a serving include: ? 8 oz (237 mL) of milk, calcium-fortifiednon -dairy milk, and calcium-fortifiedfru it juice. Calcium-fortified means that calcium has been added to these drinks. ? 8 oz (237 mL) of kefir, yogurt, and soy yogurt. ? 4 oz (114 g) of tofu. ? 1 oz (28 g) of cheese. ? 1 cup (150 g) of dried figs. ? 1 cup (91 g) of cooked broccoli. ? One 3 oz (85 g) can of sardines or mackerel. Most people need 1,000?1,500 mg of calcium a day. Talk to your dietitian about how much calcium is recommended for you. Shopping ? Buy plenty of fresh fruits and vegetables. Most people do not need to avoid fruits and vegetables, even if these foods contain nutrients that may contribute to kidney stones. ? When shopping for convenience foods, choose: ? Whole pieces of fruit. ? Pre-made salads with dressing on the side. ? Low-fat fruit and yogurt smoothies. ? Avoid buying frozen meals or prepared deli foods. These can be high in sodium. ? Look for foods with live cultures, such as yogurt and kefir. ? Choose high-fiber grains, such as whole-wheat breads, oat bran, and wheat cereals. Cooking ? Do not add salt to food when cooking. Place a salt shaker on the table and allow each person to add his or her own salt to taste. ? Use vegetable protein, such as beans, textured vegetable protein (TVP), or tofu, instead of meat in pasta, casseroles, and soups. Meal planning ? Eat less salt, if told by your dietitian. To do this: ? Avoid eating processed or pre-made food. ? Avoid eating fast food. ? Eat less animal protein, including cheese, meat, poultry, or fish, if told by your dietitian. To do this: ? Limit the number of times you have meat, poultry, fish, or cheese each week. Eat a diet free of meat at least 2 days a week. ? Eat only one serving each day of meat, poultry, fish, or seafood. ? When you prepare animal protein, cut pieces into small portion sizes. For most meat and fish, one serving is about the size of the pa (more content not included)... Normal [facility] Formson 02-23-2023 Forms [id number] 0#1.00CD:127 Normal [facility] Patient Educationon 02-24-20 23 Patient Education Nephrology Dietary Guidelines to Help Prevent Kidney Stones Kidney stones are deposits of minerals and salts that form inside your kidneys. Your risk of developing kidney stones may be greater depending on your diet, your lifestyle, the medicines you take, and whether you have certain medical conditions. Most people can lower their chances of developing kidney stones by following the instructions below. Your dietitian may give you more specific instructions depending on your overall health and the type of kidney stones you tend to develop. What are tips for following this plan? Reading food labels ? Choose foods with no salt added or low-salt labels. Limit your salt (sodium) intake to less than 1,500 mg a day. ? Choose foods with calcium for each meal and snack. Try to eat about 300 mg of calcium at each meal. Foods that contain 200?500 mg of calcium a serving include: ? 8 oz (237 mL) of milk, calcium-fortifiednon -dairy milk, and calcium-fortifiedfru it juice. Calcium-fortified means that calcium has been added to these drinks. ? 8 oz (237 mL) of kefir, yogurt, and soy yogurt. ? 4 oz (114 g) of tofu. ? 1 oz (28 g) of cheese. ? 1 cup (150 g) of dried figs. ? 1 cup (91 g) of cooked broccoli. ? One 3 oz (85 g) can of sardines or mackerel. Most people need 1,000?1,500 mg of calcium a day. Talk to your dietitian about how much calcium is recommended for you. Shopping ? Buy plenty of fresh fruits and vegetables. Most people do not need to avoid fruits and vegetables, even if these foods contain nutrients that may contribute to kidney stones. ? When shopping for convenience foods, choose: ? Whole pieces of fruit. ? Pre-made salads with dressing on the side. ? Low-fat fruit and yogurt smoothies. ? Avoid buying frozen meals or prepared deli foods. These can be high in sodium. ? Look for foods with live cultures, such as yogurt and kefir. ? Choose high-fiber grains, such as whole-wheat breads, oat bran, and wheat cereals. Cooking ? Do not add salt to food when cooking. Place a salt shaker on the table and allow each person to add his or her own salt to taste. ? Use vegetable protein, such as beans, textured vegetable protein (TVP), or tofu, instead of meat in pasta, casseroles, and soups. Meal planning ? Eat less salt, if told by your dietitian. To do this: ? Avoid eating processed or pre-made food. ? Avoid eating fast food. ? Eat less animal protein, including cheese, meat, poultry, or fish, if told by your dietitian. To do this: ? Limit the number of times you have meat, poultry, fish, or cheese each week. Eat a diet free of meat at least 2 days a week. ? Eat only one serving each day of meat, poultry, fish, or seafood. ? When you prepare animal protein, cut pieces into small portion sizes. For most meat and fish, one serving is about the size of the palm of your hand. ? Eat at least five servings of fresh fruits and vegetables each day. To do this: ? Keep fruits and vegetables on hand for snacks. ? Eat one piece of fruit or a handful of berries with breakfast. ? Have a salad and fruit at lunch. ? Have two kinds of vegetables at dinner. ? Limit foods that are high in a substance called oxalate. These include: ? Spinach (cooked), rhubarb, beets, sweet potatoes, and Malawian chard. ? Peanuts. ? Potato chips, st helenian fries, and baked potatoes with skin on. ? Nuts and nut products. ? Chocolate. ? If you regularly take a diuretic medicine, make sure to eat at least 1 or 2 servings of fruits or vegetables that are high in potassium each day. These include: ? Avocado. ? Banana. ? [place]royo, prune, carrot, or tomato juice. ? Baked potato. ? Cabbage. ? Beans and split peas. Lifestyle ? Drink enough fluid to keep your urine pale yellow. This is the most important thing you can do. Spread your fluid intake throughout the day. ? If you drink alcohol: ? Limit how much you use to: ? 0?1 drink a day for women who are not . ? 0?2 drinks a day for men. ? Be aware of how much alcohol is in your drink. In the [place] one drink equals one 12 oz bottle of beer (355 mL), one 5 oz glass of wine (148 mL), or one 1? oz glass of hard liquor (44 mL). ? Lose weight if told by your health care provider. Work with your dietitian to find an eating plan and weight loss strategies that work best for you. General information ? Talk to your health care provider and dietitian about taking daily supplements. You may be told the following depending on your health and the cause of your kidney stones: ? Not to take supplements with vitamin C. ? To take a calcium supplement. ? To take a daily probiotic supplement. ? To take other supplements such as magnesium, fish oil, or vitamin B6. ? Take qwkr-hph-tofgvnc and prescription medicines only as told by your health care provider. These include supplements. What foods should I limit? Limit your in (more content not included)... Normal [facility] Screenson 02-23-2023 Screens [id number]#1.00CD:127 [facility] Scre[facility] [id number] #1.00CD:127 [facility] Urology Office/Clinic Noteon 02-23-2023 Urology Office/Clinic Note Chief Complaint F/U from [facility] HPI Staff Pt is here today to follow up to [facility] Consult done 02/14/23. Pt is a new pt, never before seen in our office. Pt had presented to [facility] ER 02/13/23 CC: Lt Flank pain CT ap *1cm Lt distal ureter stone & hydronephrosis Pt admitted. +C&S 02/13/23 *>100k E Coli Tx'd w/Keflex by ER. He took states this worked well Hospital Consult by KML done 02/14/23 Pt then underwent Cysto/Lt RG/Lt stent placement 02/14/23 Pt started on Tamsulosin 0.4mg qd, Oxybutynin 5mg TID PRN & Pyridium 100-200mg TID PRN He states these are working well CBC/CMP 02/15/23 Hx of Ureteral Stone in [place] last yr Dysuria: burning started about a month ago Incomplete bladder emptying: denies Hematuria: denies visile blood Frequency: every couple hours Urgency: denies Nocturia: once nightly Stream: denies hesitation, normal stream Leaking: _denies Post void dripping: _a little bit Wearing pads/ Depends: _denies Urge incontinence: _denies Stress incontinence: _denies Incontinence without Sensory Awareness: _denies Abdominal pain: _denies Flank pain: denies Sexual complaints: _N/A History of Present Illness Tests reviewed: reviewed UA and External Records including labs, notes, cultures and imaging I have reviewed the previous health record information and history for this patient from External Provider. I have reviewed and verified the staff HPI to be accurate for this encounter. There have been no associated fever, chills, flank pain, or blood in the urine. Review of Systems PHQ Score Initial Depression Screen Score: 0 ROS - Provider Constitutional: denies weight loss, denies hot flashes. Eyes: denies eye problems. Gastrointestinal: denies nausea, denies vomiting. Cardiovascular: denies chest pain or angina. Integumentary: no dryness Musculoskeletal: denies musculoskeletal symptoms. ENMT: denies otolaryngeal symptoms. Respiratory: no shortness of breath. Heme/Lymph: denies easy bleeding tendency, denies easy bruising tendency. Psychiatric: no confusion, no anxiety. Genitourinary: See HPI. Physical Exam Vitals & Measurements HR: 84(Peripheral) BP: 132/82 HT: 76 in HT: 192 cm WT: 188 kg WT: 413.6 lb BMI: 51 General Appearance: alert, no distress, well nourished, well developed male. Head: normocephalic . Eyes: normal orbit and globe. ENMT: normal examination of external ears. Chest: symmetric chest rise, respirations non labored. Cardiovascular: regular rate and rhythm. Abdomen: soft, non distended, no tenderness Genitourinary: Flank Pain: none. Bladder: nonpalpable. Skin: warm, dry, no bruising. Psychiatric: cooperative, affect appropriate for age, normal judgement, euthymic mood. Assessment/Plan 33 year old male here for follow up of left distal stone and urosepsis s/p stent 02/14/23 [facility] consultation 1. Ureteral stone with hydronephrosis (N13.2: Hydronephrosis with renal and ureteral calculous obstruction) Pt had presented to [facility] ER 02/13/23 - CC: Lt Flank pain CT AP - 1cm Lt distal ureter stone & hydronephrosis Hospital Consult by SCOTT done 02/14/23 s/p Cysto/Lt RG/Lt stent placement 02/14/23 Pt started on Tamsulosin 0.4mg qd, Oxybutynin 5mg TID PRN & Pyridium 100-200mg TID PRN He states these are working well Hx of Ureteral/kidney Stone in [place] last yr, no records Pt states that he has felt fine and hasn't been taking the Oxybutynin due to not having bladder spams. Discussed the next steps of stone treatment with pt. Discussed management options including extracorporeal shockwave lithotripsy vs ureteroscopy with laser lithotripsy/stone basket extraction possible stent. Risks/benefits of each were discussed including but not limited to: ESWL- bleeding, hematoma, pain, infection, inability to break up the stone, ureteral obstruction, cardiac arrhythmias, damage to surrounding structures and need for additional procedures; ureteroscopy - bleeding, pain, infection, damage to surrounding structures, ureteral perforation, stricture, inability to treat the stone and need for additional procedures. If a stent is placed, pt understands this is not permanent and needs to be removed or exchanged within 3 months to prevent encrustation, infection, permanent renal damage and need for more invasive procedures. -Will schedule cysto, left ureteroscopy, Laser Lithotripsy, Stent Exchange. The procedural risks, benefits, details, and treatment alternatives have been discussed with the patient. These include bleeding, infection, inability to break or retrieve all of the stone, injury to the ureter (the tube which connects the kidney to the bladder), injury to the kidney scarring of the ureter, and need for repeat procedures, among others. Full informed consent has been obtained. Will order General anesthesia. -Advised pt that we could do a metabolic workup after treating the stone. Counseled pt on dietary modifications. 2. UTI (urinary tract infection) (N39.0: Urinary tract infe (more content not included)... Normal [facility] Comment on above: Result Comment: Elec tronically Signed By: Madeline Garcia MD\.br\Date and Time Signed: 02/23/23 13:56 EDT\.br\Electronically Co-Signed By: Kerry Aguirre\.br\Date and Time Co-Signed: 02/23/23 12:17 EDT ED Note-Physicianon 02-19-20 ED Note-Physician [id number] #1.00CD:127 Normal [facility] Insurance Correspondence Off iceon 02-18-2023 Insurance Correspondence Office [id number] #1.00CD:127 Normal [facility] Consultation Noteon 02-17-20 Consultation Note [id number]# 1.00CD:127 Normal [facility] Lab Reportson 02-16-2023 Lab Reports [id number] #1.00CD:127 Normal [facility] Lab Reports [id number] #1.00CD:127 Normal [facility] Operative Reporton Operative Report [id number] #1.00CD:127 Normal [facility] US LAMONT DOP LEG LTon 10-17-19 US LAMONT DOP LEG LT EXAM: US LAMONT DOP LEG LT HISTORY: Left lower leg pain and swelling for a couple days. COMPARISON: None available. PROCEDURE: High resolution duplex sonography of the left lower extremity was performed using B-mode, color-flow, and spectral analysis. FINDINGS: The visualized deep veins of the left lower extremity are compressible. Venous segments show normal waveforms. Color doppler patency preserved. No abnormal intraluminal echogenicity to suggest thrombus. IMPRESSION: No evidence of deep venous thrombosis. Electronically authenticated by: ALTAGRACIA PHILLIP Date: 2022-10-16 15:52 Normal [facility] XR knee LT 4V*on 08-22-2022 XR knee LT 4V* [facility] Main [place] [address] [place] [address] XRay Report Signed Patient: Roger Little MR#: [id number] : 1990 Acct:[id number] Age/Sex: 32 / M ADM Date: 08/22/22 Loc: ER Room: Type: [facility] ER Attending Dr: Copies to: Marcio Caro APRN Ordering Provider: Marcio Caro APRN Date of Service: 08/22/22 XR/XR knee LT 4V*: Extremity Injury, Lower LEFT KNEE - 4 views CLINICAL HISTORY: Hit left Calculi in one week ago. Continued pain COMPARISON: None FINDINGS: No acute bony process. Large knee joint effusion. Mild degenerative changes. XR/XR knee LT 4V* IMPRESSION: MILD DEGENERATIVE CHANGES WITH LARGE KNEE JOINT EFFUSION. NO ACUTE BONY PROCESS. Impression dictated by: Francisco Johnson Jr., [facility]08/22/2022 3:35 PM Dictation Location: [place] [address] Transcribed By: [facility] 08/22/22 1535 Dictated By: Francisco Johnson Jr, DO 08/22/22 1535 Signed By: 08/22/22 1535 Normal [facility] Covid-19 PCR (CVDTBH)on 06-23 SARS-CoV-2 (COVID-19) RNA VISH+probe Ql (Unsp spec) Not detected Normal NOT DETECTED [facility] Comment on above: Result Comment: When diagnostic testing is negative, the possibility of a false negative should be considered in the context of a patient's recent exposures and the presence of clinical signs and symptoms consistent with SARS-CoV-2. This test is not yet approved or cleared by the [place] FDA. When there are no FDA-approved or cleared tests available, and other criteria are met, FDA can make tests available under an emergency access mechanism called an Emergency Use Authorization (EUA). The EUA for this test is supported by the Pender of Health and Human Service's declaration that circumstances exist to justify the emergency use of in vitro diagnostics for the detection and/or diagnosis of the virus that causes COVID-19. This EUA will remain in effect for the duration of the COVID-19 declaration justifying emergency of IVDs, unless it is terminated or revoked by the FDA (after which the test may no longer be used). Performed By: #### C VDTBH #### [facility] [address] [place] [address] Dr. Avtar Orosco GROUP A STREP CULTUREon 06-23 S. pyogenes Ag Ql (Unsp spec) Culture Observations: NEGATIVE FOR GROUP A STREPTOCOCCUS. Normal [facility] Comment on above: Performed By: #### S SCRN, GRASTCX #### [facility] [address] [place] [address] Dr. Avtar Orosco INFLUENZA A AND B AGon 07-10 INFLUANEGH SEE BELOW Normal [facility] Comment on above: Result Comment: Nega tive for Flu A protein angiten. Infection due to Flu A cannot be ruled out. Flu A angiten in the sample may be below the detection limit of the test. Performed By: #### I NFLUAB #### [facility] [address] [place] [address] Dr. Avtar Orosco INFLUBNEG SEE BELOW Normal [facility] Comment on above: Result Comment: Nega tive for Flu B protein antigen. Infection due to Flu B cannot be ruled out. Flu B antigen in the sample may be below the detection limit of the test. Performed By: #### I NFLUAB #### [facility] [address] [place] [address] Dr. Avtar Orosco INFLUENZA A AG Negative Normal NEGATIVE SEE COMMENT [facility] Comment on above: Performed By: #### I NFLUAB #### [facility] [address] [place] [address] Dr. Avtar Orosco INFLUENZA B AG Negative Normal NEGATIVE SEE COMMENT [facility] Comment on above: Performed By: #### I NFLUAB #### [facility] [address] [place] [address] Dr. Avtar Orosco STREPT SCREENon 07-10-2022 STREP SCREEN A Negative Normal NEGATIVE [facility] Comment on above: Performed By: #### S SCRN, GRASTCX #### [facility] [address] [address] [address] Avtar Orosco XR CHEST 1 Von 07-10-2022 XR CHEST 1 V EXAM: Chest x-ray HISTORY: . ACUTE RESPIRATORY DISTRESS . COMPARISON: None. TECHNIQUE: Total view of the chest. Heart is upper limits of normal in size. Vascularity is unremarkable. Lungs are free of focal infiltrates. IMPRESSION: 1. Borderline cardiac enlargement. 2. No acute heart or lung disease identified. Electronically authenticated by: STEPHANIE MOE Date: 2022-07-10 16:37 Normal [facility] Vital Signs Date Time Vital Sign Value Performing Clinician Elijah sandy 02-23-2023 11:31-0400 Blood Pressure Location Madeline Garcia [facility] 02-23-2023 11:31-0400 Diastolic blood pressure 82 mm[Hg] Madeline Garcia [facility] 02-23-2023 11:31-0400 Heart rate 84 /min Madeline Jose [facility] 02-23-2023 11:31-0400 Systolic blood pressure 132 mm[Hg] Madeline Jose [facility] Encounters Encounter Date Encounter Type Care Provider Facility Start: 05-03-2023 End: 05-03-2023 ambulatory JOYCE JOHNSON Not Available Start: 04-21-2023 End: 04-22-2023 ambulatory CHELSEY SHAMMO Facility:[facility] Start: 04-21-2023 End: 04-21-2023 Patient encounter procedure Madeline Garcia [facility] Start: 04-12-2023 End: 04-12-2023 ambulatory JOYCE JOHNSON Not Available Start: 04-12-2023 End: 04-12-2023 ambulatory JOYCE JOHNSON Not Available Start: 03-29-2023 End: 03-29-2023 Emergency department patient visit [facility] Start: 03-07-2023 End: 03-08-2023 ambulatory Madeline M. Lue Facility:[facility] Start: 03-07-2023 End: 03-07-2023 Patient encounter procedure Madeline M. Lue [facility] Start: 03-02-2023 End: 03-03-2023 ambulatory Madeline M. Lue Facility:[id number] Start: 02-23-2023 End: 02-24-2023 ambulatory Madeline M. Lue Facility:[facility] Start: 02-23-2023 End: 02-23-2023 Patient encounter procedure Madeline M. Lue [facility] Start: 02-16-2023 ambulatory Madeline Lue Facility:[facility] Start: 02-14-2023 End: 02-15-2023 ambulatory Madeline M. Lue Facility:CD:[id number] Start: 12-11-2022 Emergency department patient visit [facility] Start: 10-16-2022 End: 10-16-[address] NONE LISTED REQUEST Facility: Start: 08-22-2022 End: 08-22-2022 Emergency department patient visit Marcio Caro Facility:[facility] Start: 07-10-2022 End: 07-10-2022 ambulatory SEKOU KEITH . Facility: Procedures Date Procedure Procedure Detail Performing Clinician Start: 02-17-2023 Cystoscopic insertio n of ureteric stent Madeline Cartervipin Payers Date Payer Category Payer Self-pay 1990 Unknown [id number] 2.16.84 [id number] 1990 Unknown [id number] 2.16.84 [id number] 1989 Unknown [id number] 2.16.8 [id number] 1989 Unknown [id number] 2.16.8 [id number] 1989 Unknown [id number] 2.16.8 [id number] 1989 Unknown [id number] 2.16.8 [id number] 1989 Unknown [id number] 2.16.8 [id number] 1989 Unknown [id number] 2.16.8 [id number] 1989 Unknown [id number] 2.16.840 .[id number] 1989 Unknown [id number] 2.16.840 .[id number] 1989 Unknown [id number] 2.16.840 .[id number] 1960 Medicaid [id number] Unknown [id number] 2.16.8 [id number] Social History Date Type Detail Facility Start: 02-23-2023 Tobacco smoking status Never s moked tobacco (finding) [facility] Tobacco smoking status Never [facility] Sex Assigned At Male [facility] Functional Status Date Assessment Result Facility 03-07-2023 Functional Status N/A [facility] 02-23-2023 Functional Status N/A [facility] History and physical note 03-11-2023 Note Date & Type Note Facility 03-11-2023 Note [id number] #1.00[facility] History and physical note 03-07-2023 Note Date & Type Note Facility 03-07-2023 Note [id number] #1.00TIFF [facility] Hospital Discharge instructions 03-07-2023 Note Date & Type Note Facility 03-07-2023 Hospital Discharg e instructions Follow Up Care 03/07/2023 08:23:35 With:Jose YAO, Madeline Ho URMarnie, [facility] Address: When: Unknown [facility] Clinical Note 03-07-2023 Note Date & Type Note Facility 03-07-2023 Note Cystoscopy with Sten t Removal ? Voiding after the procedure: there may be some pain, burning, urgency, frequency and blood tinged urine following the procedure. These symptoms usually resolve within 2-5 days. Drink the amount of fluid it takes to keep the urine pink to yellow or clear in color. Drinking enough water and fluids will help to ease any discomfort after your procedure. ? If you are having problems that seem out of the ordinary, please call. ? If unable to contact your physician and you feel it is an emergency, go to the nearest emergency room or call 911 ? Diet ? you may resume your normal diet. ? Activity ? you may resume your normal activities ? Call if you have a fever over 100 degrees. [facility] Discharge instructions 03-07-2023 Note Date & Type Note Facility 03-07-2023 Hospital Discharg e instructions Patient Education 03/07/2023 08:05:04 [facility] - Cystoscopy with Stent Removal Discharge Instructions (CUSTOM) Cystoscopy with Stent Removal Voiding after the procedure: there may be some pain, burning, urgency, frequency and blood tinged urine following the procedure. These symptoms usually resolve within 2-5 days. Drink the amount of fluid it takes to keep the urine pink to yellow or clear in color. Drinking enough water and fluids will help to ease any discomfort after your procedure. If you are having problems that seem out of the ordinary, please call. If unable to contact your physician and you feel it is an emergency, go to the nearest emergency room or call 911 Diet you may resume your normal diet. Activity you may resume your normal activities Call if you have a fever over 100 degrees. Follow Up Care 03/03/2023 13:19:14 With:Madeline Garcia Address: [address] [place] [address] [phone] Business (1) [address], [address] [address]- [phone] Business (1) When: Unknown Comments:Office to schedule follow up in 6 weeks with renal US and metabolic stone workup [facility] Hospital Discharge instructions 02-23-2023 Note Date & Type Note Facility 02-23-2023 Hospital Discharg e instructions Patient Education 02/23/2023 12:15:07 Dietary Guidelines to Help Prevent Kidney Stones Dietary Guidelines to Help Prevent Kidney Stones Kidney stones are deposits of minerals and salts that form inside your kidneys. Your risk of developing kidney stones may be greater depending on your diet, your lifestyle, the medicines you take, and whether you have certain medical conditions. Most people can lower their chances of developing kidney stones by following the instructions below. Your dietitian may give you more specific instructions depending on your overall health and the type of kidney stones you tend to develop. What are tips for following this plan? Reading food labels Choose foods with no salt added or low-salt labels. Limit your salt (sodium) intake to less than 1,500 mg a day. Choose foods with calcium for each meal and snack. Try to eat about 300 mg of calcium at each meal. Foods that contain 200 500 mg of calcium a serving include: ?8 oz (237 mL) of milk, ucogtsw-vaknqnecisef-jbbbe milk, and calcium-fortifiedfruit juice. Calcium-fortified means that calcium has been added to these drinks. ?8 oz (237 mL) of kefir, yogurt, and soy yogurt. ?4 oz (114 g) of tofu. ?1 oz (28 g) of cheese. ?1 cup (150 g) of dried figs. ?1 cup (91 g) of cooked broccoli. ?One 3 oz (85 g) can of sardines or mackerel. Most people need 1,000 1,500 mg of calcium a day. Talk to your dietitian about how much calcium is recommended for you. Shopping Buy plenty of fresh fruits and vegetables. Most people do not need to avoid fruits and vegetables, even if these foods contain nutrients that may contribute to kidney stones. When shopping for convenience foods, choose: ?Whole pieces of fruit. ?Pre-made salads with dressing on the side. ?Low-fat fruit and yogurt smoothies. Avoid buying frozen meals or prepared deli foods. These can be high in sodium. Look for foods with live cultures, such as yogurt and kefir. Choose high-fiber grains, such as whole-wheat breads, oat bran, and wheat cereals. Cooking Do not add salt to food when cooking. Place a salt shaker on the table and allow each person to add his or her own salt to taste. Use vegetable protein, such as beans, textured vegetable protein (TVP), or tofu, instead of meat in pasta, casseroles, and soups. Meal planning Eat less salt, if told by your dietitian. To do this: ?Avoid eating processed or pre-made food. ?Avoid eating fast food. Eat less animal protein, including cheese, meat, poultry, or fish, if told by your dietitian. To do this: ?Limit the number of times you have meat, poultry, fish, or cheese each week. Eat a diet free of meat at least 2 days a week. ?Eat only one serving each day of meat, poultry, fish, or seafood. ?When you prepare animal protein, cut pieces into small portion sizes. For most meat and fish, one serving is about the size of the palm of your hand. Eat at least five servings of fresh fruits and vegetables each day. To do this: ?Keep fruits and vegetables on hand for snacks. ?Eat one piece of fruit or a handful of berries with breakfast. ?Have a salad and fruit at lunch. ?Have two kinds of vegetables at dinner. Limit foods that are high in a substance called oxalate. These include: ?Spinach (cooked), rhubarb, beets, sweet potatoes, and Malawian chard. ?Peanuts. ?Potato chips, st helenian fries, and baked potatoes with skin on. ?Nuts and nut products. ?Chocolate. If you regularly take a diuretic medicine, make sure to eat at least 1 or 2 servings of fruits or vegetables that are high in potassium each day. These include: ?Avocado. ?Banana. ?Arroyo, prune, carrot, or tomato juice. ?Baked potato. ?Cabbage. ?Beans and split peas. Lifestyle Drink enough fluid to keep your urine pale yellow. This is the most important thing you can do. Spread your fluid intake throughout the day. If you drink alcohol: ?Limit how much you use to: ?0 1 drink a day for women who are not . ?0 2 drinks a day for men. ?Be aware of how much alcohol is in your drink. In the [place] one drink equals one 12 oz bottle of beer (355 mL), one 5 oz glass of wine (148 mL), or one 1 oz glass of hard liquor (44 mL). Lose weight if told by your health care provider. Work with your dietitian to find an eating plan and weight loss strategies that work best for you. General information Talk to your health care provider and dietitian about taking daily supplements. You may be told the following depending on your health and the cause of your kidney stones: ?Not to take supplements with vitamin C. ?To take a calcium supplement. ?To take a daily probiotic supplement. ?To take other supplements such as magnesium, fish oil, or vitamin B6. Take [id number] and prescription medicines only as told by your health care provider. These include supplements. What foods should I limit? Limit your intake of the following foods, or eat them as told by your dietitian. Vegetables Spinach. Rhubarb. Beets. Canned vegetables. Pickles. Olives. Baked potatoes with skin. Grains Wheat bran. Baked goods. Salted crackers. Cereals high in sugar. Meats and other proteins Nuts. Nut butters. Large portions of meat, poultry, or fish. Salted, precooked, or cured meats, such as sausages, meat loaves, and hot dogs. Dairy Cheese. Beverages Regular soft drinks. Regular vegetable juice. Seasonings and condiments Seasoning blends with salt. Salad dressings. Soy sauce. Ketchup. Barbecue sauce. Other foods Canned soups. Canned pasta sauce. Casseroles. Pizza. Lasagna. Frozen meals. Potato chips. Malagasy fries. The items listed above may not be a complete list of foods and beverages you should limit. Contact a dietitian for more information. What foods should I avoid? Talk to your dietitian about specific foods you should avoid based on the type of kidney stones you have and your overall health. Fruits Grapefruit. The item listed above may not be a complete list of foods and beverages you should avoid. Contact a dietitian for more information. Summary Kidney stones are deposits of minerals and salts that form inside your kidneys. You can lower your risk of kidney stones by making changes to your diet. The most important thing you can do is drink enough fluid. Drink enough fluid to keep your urine pale yellow. Talk to your dietitian about how much calcium you should have each day, and eat less salt and animal protein as told by your dietitian. This information is not intended to replace advice given to you by your health care provider. Make sure you discuss any questions you have with your health care provider. Document Revised: 01/18/2022 Document Reviewed: 01/18/2022 [employer] Patient Education 2022 [employer]. Follow Up Care 02/15/2023 11:25:04 With:Jose YAO, Madeline Ho, [facility], [facility] Address: When: Unknown Comments:Sched Ureteroscopy/LaserLitho/Stent Exchange [facility] Evaluation + Plan note Note Date & Type Note Facility Evaluation + Plan note No data available for this section [facility] Evaluation + Plan note Note Date & Type Note Facility Evaluation + Plan note Future Appointments Appointment Date:04/21/2023 02:15:00 PM Scheduled Provider:Madeline Garcia MD Location:[facility] Appointment Type:URO Office Visit [facility] Progress note Note Date & Type Note Facility Progress note No data available for this section [facility] Summary Purpose Family History No Family History Records FoundNo Family History Records Found No data available for this section No data available for this section No Family History Records Found No data available for this section No Family History Records FoundNo Family History Records Found Advance Directives No Advanced Directives Records FoundNo Advanced Directives Records FoundNo Advanced Directives Records FoundNo Advanced Directives Records FoundNo Advanced Directives Records Found Additional Source Comments (unrecognized sect ion and content) No Status Records FoundNo Status Records FoundNo Status Records FoundNo Status Records FoundNo Status Records Found INFORMATION SOURCE (unrecogn ized section and content) DATE CREATED AUTHOR 09/01/2022 [facility] DATE CREATED AUTHOR AUTHOR'S ORGANIZ ATION 10/29/2022 [facility] DATE CREATED AUTHOR AUTHOR'S ORGANIZ ATION 03/30/2023 [facility] DATE CREATED AUTHOR AUTHOR'S ORGANIZ ATION 04/24/2023 [facility] [place] [facility] DATE CREATED AUTHOR AUTHOR'S ORGANIZ ATION 05/05/2023 [facility] EPIC Patient Care team informatio n (unrecognized section and content) Personnel Name: [employer] Address: Address: [address] [place] [address] Personnel Name: [employer] Address: Address: [address] [place] [address] Personnel Name: CHELSEY PLATT CNPER Address: Address: [address] [place] [address] FOR RECORDS PERTAINING TO PATIENTS WHO ARE OR HAVE BEEN ENROLLED IN A CHEMICAL DEPENDENCY/SUBSTANCEABUSE PROGRAM, SOME INFORMATION MAY BE OMITTED. This clinical summary was aggregated from multiple sources. Caution should be exercised in using it in the provision of clinical care. This summary normalizes information from multiple sources, and as a consequence, information in this document may materially change the coding, format and clinical context of patient data. In addition, data may be omitted in some cases. CLINICAL DECISIONS SHOULD BE BASED ON THE PRIMARY CLINICAL RECORDS. [facility] [employer] [facility]. provides no warranty or guarantee of the accuracy or completeness of information in this document.
[2024-02-16 09:41] LABS: Basophils Absolute Auto 0.1 10^3/uL (0.0-0.1); Basophils Percent Auto 0.7 % (0.2-2.0); Eosinophils Absolute Auto 0.2 10^3/uL (0.0-0.7); Eosinophils Percent Auto 2.2 % (0.9-7.0); Hematocrit 44.9 % (42.0-54.0); Hemoglobin 14.6 g/dL (14.0-18.0); Immature Granulocytes Abs Auto 0.14 10^3/uL (0.00-0.03); Immature Granulocytes Pct Auto 1.5 % (0.0-0.5); Lymphocytes Absolute Auto 2.8 10^3/uL (1.2-3.8); Lymphocytes Percent Auto 30.1 % (20.5-60.0); Mean Corpuscular HGB Conc 32.5 g/dL (29.9-35.2); Mean Corpuscular Hemoglobin 28.9 pg (25.9-34.0); Mean Corpuscular Volume 88.7 fL (80.0-94.0); Mean Platelet Volume 10.3 fL (9.5-13.5); Monocytes Percent Auto 11.1 % (1.7-12.0); Neutrophils Percent Auto 54.4 % (43.0-75.0); Platelet Count 280 10^3/uL (150-450); Red Blood Count 5.06 10^6/uL (4.70-6.10); Red Cell Distribution Width 12.8 % (11.0-15.0); White Blood Count 9.2 10^3/uL (4.0-11.0)
[2024-02-16 09:42] LABS: Bilirubin Urine NEGATIVE (NEGATIVE); Blood Urine NEGATIVE (NEGATIVE); Clarity Urine CLEAR (CLEAR); Color Urine LT. YELLOW (YELLOW); Glucose Urine UA 500 mg/dL (NEGATIVE); Ketones Urine NEGATIVE (NEGATIVE); Leukocyte Esterase Urine SMALL (NEGATIVE); Nitrite Urine NEGATIVE (NEGATIVE); Protein Urine NEGATIVE (NEG/TRACE); Specific Gravity Urine 1.025 (1.005-1.025); Urobilinogen Urine 0.2 EU/dL (0.2-1.0)
[2024-02-16 09:49] LABS: D Dimer 0.41 mg/L FEU (<=0.59)
[2024-02-16 10:00] LABS: Sodium 135 mmol/L (136-145)
[2024-02-16 10:01] LABS: Anion Gap 12.2; Carbon Dioxide 27.8 mmol/L (21.0-32.0); Chloride 99 mmol/L (98-107); Estimated GFR (African America >60 (>=60); Estimated GFR (Non-African Ame >60 (>=60); Glucose 264 mg/dL (74-106)
[2024-02-16 10:02] LABS: Calcium 9.4 mg/dL (8.5-10.1)
[2024-02-16 10:04] LABS: Mucus Urine NONE SEEN (NONE SEEN); Squamous Epithelial Cell Urine FEW #/LPF (NONE/RARE)
[2024-02-16 10:05] LABS: Bacteria Urine TRACE #/HPF (NONE SEEN); Cast Seen? NONE SEEN #/LPF (NONE SEEN); Crystals Seen? None Seen #/HPF (None Seen); Urine Culture Indicated YES
--- NOTE | 2024-02-16 11:07 | SWNOTE1 ---
SW received a call from nursing and pt does not have insurance and checking to see if we have any assistance for medication. SW checked to see if pt is registered with insurance. It showed pt used to have [employer] medicaid, but does not anymore. SW spoke with pt and he is making too much money to qualify for medicaid anymore. He stated his gross income monthly is around $1,900. Pt's company does offer insurance, but he missed the enrollment period as he thought he would still qualify for Medicaid. He does not think he will be able to enroll again until July. Pt is familiar with [facility] [employer] and has used it before. SW provided pt with a [employer] card and another prescription card to try. Pt voiced he may check out [employer] insurance until he can enroll with the company.
--- NOTE | 2024-02-16 11:12 | SWNOTE1 ---
Patient did have [employer] forms in room that he had filled out. SW updated nursing and doctor.
== END 2024-02-16 11:12 | disposition home or self-care (01) ==
PROVIDERS: Emergency Provider Emergency Medicine
DX: R07.89 Other chest pain (principal); E66.9 Obesity, unspecified; Z68.43 Body mass index [BMI] 50.0-59.9, adult
CPT/HCPCS: 36415; 71045; 80048; 81001; 85025; 85378; 87086; 93005; 99285